=== PATIENT | female | born 1995 | race Caucasian/White ===

== ENCOUNTER 2020-01-27 01:18 | Emergency (ER) | payer BC, SELFPAY ==
[2020-01-27 01:25] VITALS: BP 148/106; PULSE 89; RESP 20; TEMP 36.8; O2SAT 100
--- NOTE | 2020-01-27 02:25 | ED.GIBLEED ---
HPI - GI Bleed General Chief complaint: Unspecified Stated complaint: blood in stool Time Seen by Provider: 01/27/20 01:43 Source: patient Mode of arrival: ambulatory Limitations: no limitations History of Present Illness HPI Narrative: Patient is a 24-year-old female who presents to the emergency department with complaint of rectal bleeding. Patient states she had onset of symptoms a few hours ago after dinner. Patient noted some diarrhea with bright red blood in her stool. Patient reports the diarrhea subsided and when she passed gas while sitting on the toilet she felt blood come out noticed blood in the toilet again. Patient denies any nausea, vomiting, or abdominal pain. She denies any fever. Patient denies any prior episodes except for once while straining for a bowel movement when she was and having constipation issues. complaint: blood streaked stool and gross hematochezia Onset (ago): hour(s) Pain Consistency: intermittent Relieving factors: none Exacerbating factors: none and bowel movement Associated symptoms: denies other symptoms Treatments Prior to Arrival: none Related Data Allergies Allergy/AdvReac Type Severity Reaction Status Date / Time No Known Allergies Allergy Verified 01/27/20 01:32 Review of Systems Review of Systems: All systems reviewed & are unremarkable except as noted in HPI and below Gastrointestinal: Gastrointestinal: Denies abdominal pain, Reports hematochezia, Reports diarrhea, Denies nausea and Denies vomiting PMFSH Past Medical History Medical History (Updated 01/27/20 @ 03:31 by Neyda Ruelas MD) No significant past medical history Surgical History Surgical History (Updated 01/27/20 @ 02:26 by Neyda Ruelas MD) History of tonsillectomy Social History Social History (Updated 01/27/20 @ 02:27 by Neyda Ruelas MD) Smoking status: Never smoker Exam Const: General: cooperative, no acute distress and alert Nutritional Appearance: overweight Orientation/consciousness: patient oriented x3 Limitations: no limitations HENMT: Mouth: Yes lip normal and Yes moist mucous membranes Resp: Effort & Inspection: normal respiratory effort Auscultation: clear to auscultation bilaterally Cardio: Rate: regular rate Rhythm: regular rhythm GI: GI Palp: Yes Soft to palpation and No Tenderness to palpation present (GI) Auscultation: normal bowel sounds Rectal Exam: visual inspection normal, normal sphincter tone and other Other: No stool in rectal vault. Faint pink-tinged mucus consistent with recent bleeding Skin: General skin exam: normal color Neuro: General: patient oriented x3 Cognition (Neuro): normal cognition Speech: normal speech Extrem: General: normal to inspection, full ROM and no clubbing, cyanosis or edema Psych: Mental Status: mental status grossly normal Affect: normal affect Attitude: cooperative Course Course Emergency Course: Patient with normal vital signs and normal hemoglobin. No gross bleeding noted on rectal exam. Patient is stable for outpatient evaluation by her primary care physician, Dr. Figueroa. Advised patient to call office on Wednesday to schedule follow-up care. Vital Signs Vital signs: Vital Signs Temperature 98.3 F 01/27/20 01:25 Pulse Rate 89 01/27/20 01:25 Respiratory Rate 20 01/27/20 01:25 Blood Pressure 148/106 H 01/27/20 01:25 Pulse Oximetry 100 01/27/20 01:25 Temperature 98.3 F 01/27/20 01:25 Pulse Rate 89 01/27/20 01:25 Respiratory Rate 20 01/27/20 01:25 Blood Pressure 148/106 H 01/27/20 01:25 Pulse Oximetry 100 01/27/20 01:25 MDM - GI Bleed Lab Data Attestation: I reviewed the patient's lab results. Result diagrams: 01/27/20 02:39 01/27/20 02:39 Labs: Lab Results 01/27/20 01/27/20 Range/Units 02:39 02:39 WBC 7.7 (4.5-10.0) K/mm3 RBC 4.59 (4.2-5.4) M/mm3 Hgb 12.9 (12.0-15.0) g/dL Hct 39.7 (37.0-47.0) %
[2020-01-27 02:44] LABS: Basophils Absolute Auto 0.1 K/mm3 (0.0-0.1); Basophils Percent Auto 0.7 % (0.2-1.2); Eosinophils Absolute Auto 0.2 K/mm3 (0-0.3); Eosinophils Percent Auto 2.6 % (0-4.4); Hematocrit 39.7 % (37.0-47.0); Hemoglobin 12.9 g/dL (12.0-15.0); Immature Granulocyte Absolute 0.02 K/mm3 (0.00-0.031); Immature Granulocyte Percent A 0.3 % (0-0.5); Lymphocytes Absolute Auto 2.69 K/mm3 (0.9-3.2); Mean Corpuscular HGB Conc 32.5 g/dl (32-36); Mean Corpuscular Hemoglobin 28.1 pg (26-34); Mean Corpuscular Volume 86.5 fl (80-100); Mean Platelet Volume 10.3 fl (7.4-10.4); Monocytes Absolute Auto 0.6 K/mm3 (0.1-0.6); Monocytes Percent Auto 8.1 % (2.6-8.5); Neutrophils Absolute Auto 4.1 K/mm3 (1.3-6.7); Neutrophils Percent Auto 53.3 % (45.5-73.1); Platelet Count Result 280 k/mm3 (150-375); Red Blood Count 4.59 M/mm3 (4.2-5.4); Red Cell Distribution Width 12.4 % (11.5-14.5); White Blood Count 7.7 K/mm3 (4.5-10.0)
[2020-01-27 02:58] LABS: Alanine Aminotransferase 20 U/L (4-35); Albumin Level 4.3 g/dL (3.5-5.1); Alkaline Phosphatase 63 U/L (38-126); Aspartate Amino Transferase 22 U/L (14-36); Bilirubin,Total 0.2 mg/dL (0.2-1.3); Blood Urea Nitrogen 13 mg/dL (7-17); Calcium 9.5 mg/dL (8.4-10.2); Carbon Dioxide 31 mmol/L (22-30); Chloride 102 mmol/L (98-107); Estimated CRCL calculation 97 ml/min; Estimated Glomerular Filt Rate > 60; Glucose 90 mg/dL (65-105); Sodium 140 mmol/L (137-145)
[2020-01-27 03:39] VITALS: BP 142/99; PULSE 74; RESP 16; O2SAT 99
== END 2020-01-27 03:40 | disposition home or self-care (01) ==
PROVIDERS: Emergency Provider Emergency Medicine; PCP Internal Medicine
DX: K62.5 Hemorrhage of anus and rectum (principal)
CPT/HCPCS: 36415; 80053; 85025; 99283

== ENCOUNTER 2022-05-08 14:50 | Observation (INO) | payer BC, SELFPAY ==
--- NOTE | ~2022-05-08 | US_ITS ---
EXAMINATION: US OB transvaginal DATE: 05/08/2022 16:25 INDICATION: Pelvic and low back pain. Assess cervical length. TECHNIQUE: Real-time ultrasound of the pelvis was performed. The interpreting radiologist was not pre sent for the study. COMPARISON: None. FINDINGS: There is a single living fetus in vertex presentation. The placenta is anterior and low-lying with c audal margin 9 mm from the edge of the internal cervical os. Cervical length measures 6.2 cm which is normal with no funneling. heart rate is 142 beats per minute (bpm). The amniotic volume is sub jectively normal. IMPRESSION: 1. Single living fetus in vertex presentation with heart rate of 142 bpm. 2. Low-lying anterior placenta with caudal margin 9 mm from the edge of the internal cervical os. 3. Normal cervical length of 6.2 cm. Reviewed, dictated and finalized at location A. IMPRESSION: 1. Single living fetus in vertex presentation with heart rate of 142 bpm. 2. Low-lying anterior placenta with caudal margin 9 mm from the edge of the int ernal cervical os. 3. Normal cervical length of 6.2 cm.
--- NOTE | ~2022-05-08 | US_ITS ---
EXAMINATION: US OB limited DATE: 05/08/2022 16:25 INDICATION: Pelvic and low back pain. Assess cervical length. TECHNIQUE: Real-time ultrasound of the pelvis was performed. The interpreting radiologist was not pre sent for the study. COMPARISON: None. FINDINGS: There is a single living fetus in vertex presentation. The placenta is anterior and low-lying with ca udal margin 9 mm from the edge of the internal cervical os. Cervical length measures 6.2 cm which is normal with no funneling. heart rate is 142 beats per minute (bpm). The amniotic volume is subj ectively normal. IMPRESSION: 1. Single living fetus in vertex presentation with heart rate of 142 bpm. 2. Low-lying anterior placenta with caudal margin 9 mm from the edge of the internal cervical os. 3. Normal cervical length of 6.2 cm. Reviewed, dictated and finalized at location A. Reviewed, dictated and finalized at location A. IMPRESSION: 1. Single living fetus in vertex presentation with heart rate of 142 bpm. 2. Low-lying anterior placenta with caudal margin 9 mm from the edge of the int ernal cervical os. 3. Normal cervical length of 6.2 cm.
[2022-05-08 15:19] VITALS: BP 132/71; PULSE 88
[2022-05-08 15:20] VITALS: TEMP 36.6
[2022-05-08 15:31] VITALS: BP 116/69; PULSE 87
--- NOTE | 2022-05-08 15:42 | PC.NURSE ---
Sybil Douglas [facility] notified of pt's arrival with c/o pain with urination and urinary frequency x's 2-3 wks. She has had worsening pain in lower abdomen and back that started yesterday, but worse since noon today. Pt did take Tylenol with little relief. FHT's 145 at 21 wks and no contractions noted. UA was sent. Order received for U/S for cervical length.
--- NOTE | 2022-05-08 15:56 | PC.NURSE ---
Off monitor and to U/S per wheelchair.
[2022-05-08 16:19] LABS: Appearance Urine Clear (Clear); Bilirubin Urine Negative (Negative); Blood Urine Negative (Negative); Color Urine Yellow (Yellow); Glucose Urine UA Negative (Negative); Ketones Urine Negative (Negative); Leukocyte Esterase Ur Negative LEU/UL (Negative); Nitrate Urine Negative (Negative); Protein Urine Negative (Negative); Specific Grav Ur 1.025 (1.001-1.035); Urobilinogen Urine 0.2 mg/dL (<2.0)
[2022-05-08 16:22] LABS: Add Urine Microscopic? NO
[2022-05-08 16:38] VITALS: BMI 36.7
--- NOTE | 2022-05-08 16:39 | OBADM ---
This patient, Jessica Greenwood, admitted to the OB room OB Post 115 for observation. Patient/family oriented to hospital policies and general routines including ID bracelet, bed and alarms, visiting hours, pain management, procedures, bathroom and other care routines, personal items, smoking policy, room service/diet, and visiting hours. Patient/Family are encouraged to report perceived risks to care and to ask questions if they do not understand what they are told or what they should do.
[2022-05-08 17:01] VITALS: BP 130/76; PULSE 79
[2022-05-08 17:31] VITALS: BP 134/73; PULSE 88
--- NOTE | 2022-05-13 06:59 | PM.OBTRLD ---
OB - Triage/Final Diagnosis Visit Information Date of evaluation: 05/08/22 Reason for evaluation: threatened labor Comments/Additional reasons for admission: I have assessed the risk for this patient, Jessica Greenwood, and determined that she would benefit from observation care. Evaluation Laboratory results: Laboratory Tests 05/08/22 15:21 Urine Color Yellow Urine Appearance Clear Urine pH 6.0 Ur Specific [place] 1.025 Urine Protein Negative Urine Glucose (UA) Negative Urine Ketones Negative Ur Blood (Man) Negative Urine Nitrate Negative Urine Bilirubin Negative Urine Urobilinogen 0.2 Leukocyte Esterase Rfl Negative
== END 2022-05-08 17:30 | disposition home or self-care (01) ==
PROVIDERS: Advanced Practice Midwife; Admitting Provider Obstetrics & Gynecology; Visit Provider Obstetrics & Gynecology
DX: O47.03 False labor before 37 completed weeks of gestation, third trimester (principal); Z3A.31 31 weeks gestation of pregnancy
CPT/HCPCS: 76815; 76817; 81003; G0378; G0379

== ENCOUNTER 2022-07-24 12:11 | Outpatient (CLI) | payer BC, SELFPAY ==
[2022-07-24 12:30] VITALS: BP 137/88; PULSE 105
[2022-07-24 12:45] VITALS: BP 128/73; PULSE 105
[2022-07-24 13:04] VITALS: BP 128/73; PULSE 115; BMI 41.2
== END 2022-07-24 13:12 | disposition home or self-care (01) ==
LOC: ANHOBOP 12:16 → ANHOBPP 12:19
PROVIDERS: Visit Provider Obstetrics & Gynecology
DX: O42.90 Premature rupture of membranes, unspecified as to length of time between rupture and onset of labor, unspecified weeks of gestation (principal); Z3A.00 Weeks of gestation of pregnancy not specified
CPT/HCPCS: 59025; 84112; 99199

== ENCOUNTER 2022-08-26 12:40 | Outpatient (CLI) | payer BC, SELFPAY ==
[2022-08-26 13:06] VITALS: BP 136/86; PULSE 97
[2022-08-26 13:15] LABS: Appearance Urine Clear (Clear); Basophils Percent Auto 0.3 % (0.2-1.2); Bilirubin Urine Negative (Negative); Blood Urine Trace-intact (Negative); Color Urine Yellow (Yellow); Eosinophils Absolute Auto 0.1 K/mm3 (0-0.3); Eosinophils Percent Auto 0.6 % (0-4.4); Glucose Urine UA Negative (Negative); Hematocrit 37.1 % (37.0-47.0); Hemoglobin 12.2 g/dL (12.0-15.0); Immature Granulocyte Absolute 0.04 K/mm3 (0.00-0.031); Immature Granulocyte Percent A 0.5 % (0-0.5); Ketones Urine Negative (Negative); Leukocyte Esterase Ur 1+ LEU/UL (NEGATIVE); Lymphocytes Absolute Auto 1.44 K/mm3 (0.9-3.2); Mean Corpuscular HGB Conc 32.9 g/dl (32-36); Mean Corpuscular Hemoglobin 27.9 pg (26-34); Mean Corpuscular Volume 84.9 fl (80-100); Mean Platelet Volume 9.9 fl (7.4-10.4); Monocytes Absolute Auto 0.5 K/mm3 (0.1-0.6); Monocytes Percent Auto 6.4 % (2.6-8.5); Neutrophils Absolute Auto 5.9 K/mm3 (1.3-6.7); Neutrophils Percent Auto 74.2 % (45.5-73.1); Nitrate Urine Negative (Negative); Platelet Count Result 212 k/mm3 (150-375); Protein Urine Negative (Negative); Red Blood Count 4.37 M/mm3 (4.2-5.4); Red Cell Distribution Width 13.2 % (11.5-14.5); Specific Grav Ur 1.025 (1.001-1.035); Urobilinogen Urine 0.2 mg/dL (<2.0)
[2022-08-26 13:16] VITALS: BP 133/87; PULSE 96
[2022-08-26 13:21] LABS: Creatinine Urine 74.6 mg/dL; Total Protein Urine Random 21 mg/dL; Ur Ttl Prot Creatinine Ratio 0.28 mg/mg (0-0.20)
[2022-08-26 13:26] LABS: Alanine Aminotransferase 15 U/L (6-35); Albumin Level 3.6 g/dL (3.5-5.1); Alkaline Phosphatase 136 U/L (38-126); Anion Gap 8 mmol/L (8-16); Aspartate Amino Transferase 18 U/L (14-36); Bilirubin,Total 0.3 mg/dL (0.2-1.3); Blood Urea Nitrogen 6 mg/dL (7-17); Calcium 9.4 mg/dL (8.4-10.2); Carbon Dioxide 22 mmol/L (22-30); Chloride 106 mmol/L (98-107); Estimated Glomerular Filt Rate > 60; Glucose 108 mg/dL (65-110); Potassium 3.8 mmol/L (3.4-5.0); Sodium 136 mmol/L (137-145); Uric Acid 3.1 mg/dL (2.5-7.5)
[2022-08-26 13:28] LABS: Bacteria Urine Trace /hpf; Mucus Urine Rare /lpf; Squamous Epithelial Cell Urine Occasional /hpf (Few)
[2022-08-26 13:31] VITALS: BP 125/81; PULSE 89
[2022-08-26 13:37] LABS: Add Urine Microscopic? YES
== END 2022-08-26 13:40 | disposition home or self-care (01) ==
LOC: ANHOBOP 12:43 → ANHOBPP 12:44
PROVIDERS: Advanced Practice Midwife; Visit Provider Obstetrics & Gynecology
DX: O13.9 Gestational [pregnancy-induced] hypertension without significant proteinuria, unspecified trimester (principal); Z3A.00 Weeks of gestation of pregnancy not specified
CPT/HCPCS: 36415; 59025; 80053; 81001; 82570; 84156; 84550; 85025; 87086; 99199

== ENCOUNTER 2022-09-05 11:48 | Outpatient (CLI) | payer BC, SELFPAY ==
[2022-09-05 11:55] VITALS: BMI 42.7
[2022-09-05 12:19] LABS: Estimated CRCL calculation 178 ml/min; Estimated Glomerular Filt Rate > 60
[2022-09-05 12:25] LABS: Collection Time Urine 24 HOURS; Total Volume 24 Hour Urine 2450 ml
[2022-09-05 12:34] LABS: Creatinine Urine 59.3 mg/dL; Patient Weight 249 Lbs; Total Protein Urine 24 Hr 196 mg/24hr (28-141); Total Protein Urine Random 8 mg/dL
[2022-09-05 12:45] LABS: Creatinine Clearance Urine 163.1 ml/min (75-125); Serum Creat 0.5
== END 2022-09-05 11:49 | disposition home or self-care (01) ==
LOC: ANHOBOP 11:50
PROVIDERS: Visit Provider Obstetrics & Gynecology
DX: Z34.90 Encounter for supervision of normal pregnancy, unspecified, unspecified trimester (principal); Z3A.00 Weeks of gestation of pregnancy not specified
CPT/HCPCS: 36415; 81050; 82565; 82575; 84156

== ENCOUNTER 2022-09-11 04:57 | Inpatient (IN) | payer BC, SELFPAY ==
[2022-09-11] VITALS (171 sets, daily range): BP systolic 79–174; BP diastolic 45–117; PULSE 71–141; RESP 16; TEMP 36.2–36.9; O2SAT 95–100; BMI 43.1
--- NOTE | 2022-09-11 05:25 | LDADM ---
This patient, Jessica Greenwood, was admitted to Labor/Delivery/Recovery 107 on 09/11/22 at 04:57. Plans for labor, pain management and were discussed with patient. Patient/family oriented to hospital policies and general routines including ID bracelet, bed and alarms, visiting hours, pain management, procedures, bathroom and other care routines, personal items, smoking policy, room service/diet and guest tray routines, security routines, and visiting hours. Patient/Family are encouraged to report perceived risks to care and to ask questions if they do not understand what they are told or what they should do. See OBIX for further documentation.
[2022-09-11 05:34] LABS: Basophils Percent Auto 0.2 % (0.2-1.2); Eosinophils Absolute Auto 0.1 K/mm3 (0-0.3); Eosinophils Percent Auto 1.1 % (0-4.4); Hemoglobin 12.2 g/dL (12.0-15.0); Immature Granulocyte Absolute 0.04 K/mm3 (0.00-0.031); Immature Granulocyte Percent A 0.4 % (0-0.5); Lymphocytes Absolute Auto 2.07 K/mm3 (0.9-3.2); Lymphocytes Percent Auto 22.8 % (18.3-44.2); Mean Corpuscular Volume 84.9 fl (80-100); Mean Platelet Volume 10.1 fl (7.4-10.4); Monocytes Absolute Auto 0.8 K/mm3 (0.1-0.6); Monocytes Percent Auto 8.7 % (2.6-8.5); Neutrophils Absolute Auto 6.1 K/mm3 (1.3-6.7); Neutrophils Percent Auto 66.8 % (45.5-73.1); Platelet Count Result 225 k/mm3 (150-375); Red Blood Count 4.36 M/mm3 (4.2-5.4); Red Cell Distribution Width 13.3 % (11.5-14.5); White Blood Count 9.1 K/mm3 (4.5-10.0)
[2022-09-11] MEDS: LACTATED RINGERS 1,000 ML 125 ML IV CONT ×3 (05:41→17:45)
[2022-09-11] MEDS: OXYTOCIN 30 UNITS/NS 500 ML 30 UNITS/500 ML BAG IV CONT (05:41)
--- NOTE | 2022-09-11 07:30 | WPDOBADMIT ---
Obstetrics - Admit Note Admission Note: record reviewed. No pertinent additions to the history and/or any subsequent changes in the physical findings that are not consistent with the expected course of the were found. Elective IOL, SVE 2-3/-2 AROM moderate amount of clear odorless fluid, anticipate vaginal delivery Additions to the history and/or subsequent changes in the physical findings follow. None.
--- NOTE | 2022-09-11 08:28 | WPDANESEPP ---
Anes - Eval Pre Procedure Procedure: labor pain management Date/Time: 09/11/22 08:28 Surgeon: Stacie Preop Diagnosis: pain during labor Pre Op Diagnosis: IOL Patient Data Age: 26 Gender: F Height: 1.63 m Weight: 114 kg Last Vital Signs Temp 97.2 F L 09/11/22 07:30 Pulse 94 09/11/22 08:15 Resp 16 09/11/22 05:45 BP 129/97 H 09/11/22 08:15 O2 Del Method Room Air 09/11/22 05:23 Allergies Allergy/AdvReac Type Severity Reaction Status Date / Time No Known Allergies Allergy Verified 05/08/22 16:47 Home Medications Medication Instructions Recorded Confirmed Type acetaminophen 500 mg tablet 1,000 mg PO Q6H PRN Pain 05/08/22 09/11/22 History (Tylenol Extra Strength) Laboratory Tests 09/11/22 09/11/22 09/11/22 05:29 05:29 05:29 WBC 9.1 K/mm3 K/mm3 (4.5-10.0) RBC 4.36 M/mm3 M/mm3 (4.2-5.4) Hgb 12.2 g/dL g/dL (12.0-15.0) Hct 37.0 % % (37.0-47.0) MCV 84.9 fl fl (80-100) MCH 28.0 pg pg (26-34) MCHC 33.0 g/dl g/dl (32-36) RDW 13.3 % % (11.5-14.5) Plt Count 225 k/mm3 k/mm3 (150-375) MPV 10.1 fl fl (7.4-10.4) Immature Gran % (Auto) 0.4 % % (0-0.5) Neut % (Auto) 66.8 % % (45.5-73.1) Lymph % (Auto) 22.8 % % (18.3-44.2) [place] % (Auto) 8.7 % H % (2.6-8.5) Eos % (Auto) 1.1 % % (0-4.4) Baso % (Auto) 0.2 % % (0.2-1.2) Lymph # (Auto) 2.07 K/mm3 K/mm3 (0.9-3.2) [place] # (Auto) 0.8 K/mm3 H K/mm3 (0.1-0.6) Eos # (Auto) 0.1 K/mm3 K/mm3 (0-0.3) Baso # (Auto) 0.0 K/mm3 K/mm3 (0.0-0.1) Abs Immat Gran (auto) 0.04 K/mm3 H K/mm3 (0.00-0.031) Absolute Neuts (auto) 6.1 K/mm3 K/mm3 (1.3-6.7) Absolute Nucleated RBC 0.0 K/mm3 K/mm3 (0.0-0.012) Nucleated RBC % 0.0 % % (0.0-0.2) RPR Pending Blood Type A Positive Antibody Screen Negative Patient hx anesthesia problems: none Family hx anesthesia problems: none Prior surgeries: tonsillectomy Results Review: All pre-operative results and documents have been reviewed as part of the pre-operative evaluation. [facility] Past Medical History Medical History (Updated 09/11/22 @ 08:27 by Marcia Jane CRNA) Morbid obesity with BMI of 40.0-44.9, adult No significant past medical history Pain during labor Surgical History Surgical History (Updated 01/27/20 @ 02:26 by Neyda Ruelas MD) History of tonsillectomy Family History Family History (Updated 08/20/22 @ 12:50 by Herlinda Ruano RN) Mother Anxiety Grandparent Lymphoma Social History Social History (Updated 01/27/20 @ 02:27 by Neyda Ruelas MD) Smoking status: Never smoker Substance use: never Lack of Transportation: No Lack of Food: Never True Current Housing: I Have Housing Concerned About Future Housing: No Difficulty Paying Gas/Electric Bills: No Difficulty Paying for Meds: No Currently Unemployed: No Education: High School Diploma/GED Difficulty w/ Childcare or Family Care: No Spiritual care concerns: No Exam Day of Procedure 09/11/22 08:28
[2022-09-11 12:04] LABS: Rapid Plasma Reagin Non-Reactive (NonReactive)
--- NOTE | 2022-09-11 15:43 | PM.OBPRVD ---
OB - Delivery Note Procedure Delivery date: 09/11/22 Procedure: vaginal delivery Induction method: AROM and Per Pitocin Protocol Delivery monitor: External FHT, External Uterine and Internal Uterine Laceration Description: None Specimen: No Quantitative Blood Loss (ml): 85 Anesthesia type: Epidural Disposition: Floor [place] Baby Date of : 09/11/22 Time of : 15:33 Weeks of gestation at delivery: 39 gender: Female Weight (pounds): 7 Weight (ounces): 1 presentation: vertex position: Right Occiput Anterior Placenta delivery description: Spontaneous Cord Vessel Description: 3 Vessels, Nuchal Cord (x2, loose), Clamped/Cut and Delayed Cord Clamping score one minute: 7 score five minutes: 8 Narrative: mother and baby skin to skin in stable condition
[2022-09-12] MEDS: IBUPROFEN 600 MG TABLET PO ×2 (00:17→10:33)
[2022-09-12 01:30] VITALS: BP 136/88; PULSE 101; RESP 16; TEMP 36.9; O2SAT 97
[2022-09-12] MEDS: ACETAMINOPHEN 325 MG TABLET 650 MG PO (04:45)
--- NOTE | 2022-09-12 05:11 | PC.NURSE ---
Addendum entered by Heidi Leos RN 09/12/22 05:12: Pt. arrived on unit at 1825. Original Note: Patient transferred to post room #287 via ( W/C ). Support person present. Oriented to unit, room, information board, rooming in, admission packet and security measures. Patient verbalizes understanding.
[2022-09-12 05:40] VITALS: BP 134/84; PULSE 96; RESP 18; TEMP 36.9; O2SAT 97
[2022-09-12 05:46] LABS: Hematocrit 31.8 % (37.0-47.0); Hemoglobin 10.4 g/dL (12.0-15.0)
[2022-09-12 07:45] VITALS: BP 111/67; PULSE 92; RESP 18; TEMP 37; O2SAT 98
[2022-09-12 08:00] VITALS: PULSE 92; RESP 18; O2SAT 98
[2022-09-12] MEDS: DOCUSATE SODIUM 100 MG CAPSULE PO (10:33)
[2022-09-12] MEDS: MULTIVIT/MIN/PREN/FOL AC/IRON TABLET 1 TAB PO (10:33)
--- NOTE | 2022-09-12 10:39 | PM.OBPNVD ---
OB - PN: Subj Subjective Date/time seen: 09/12/22 10:39 vaginal delivery day 1 OB - PN: Obj Data Labs 09/12/22 05:31 Labs: Laboratory Results - last 24 hr 09/11/22 09/12/22 05:29 05:31 Hgb 10.4 L Hct 31.8 L RPR Non-reactive OB - PN A/P Plan day: 1 Plan: routine care Time Spent With Patient Time: Total time spent is greater than 50% in coordination of care (as documented) at patient's floor/unit and/or counseling patient: Review of Systems Review of Systems: All systems reviewed & are unremarkable except as noted in HPI and below Exam Const: General: cooperative, healthy appearing and comfortable
--- NOTE | 2022-09-12 10:45 | PM.OBDSVD ---
DS: Admitting Diagnosis Discharge Date 09/12/22 Admitting Diagnosis IOL OB - DS: Summary OB Procedures : None OB Procedures Intrapartum: Spontaneous Vag Delivery OB Procedures: : None Time Spent with Patient Time attestation: Total time spent providing and/or coordinating discharge services: DS: Data Data Completed and Pending Labs on day of discharge: Labs from last 24 hours 09/12/22 09/11/22 05:31 05:29 Hgb 10.4 L Hct 31.8 L RPR Non-reactive Discharge Plan Discharge Attending physician on discharge: Tori Quinones Discharging Clinician: Heidi Douglas Patient Disposition: Home, Self-Care Activity: pelvic rest Diet: regular Patient Instructions: Antibiotic Form Stand Alone Forms: General Discharge Information Follow-up/Referrals: Heidi Douglas CNM [Certified Nurse [employer]otive [employer]] - 1 Week Discharge Medications: New ibuprofen 600 mg Tablet 600 mg PO Q6H PRN (Reason: Cramping) Qty: 30 0RF Continued acetaminophen [Tylenol Extra Strength] 500 mg Tablet 1,000 mg PO Q6H PRN (Reason: Pain) Date of admission: 09/11/22 04:57 Primary Care Provider: PHYSICIAN,HUMAN SERVICES MANAGER Admitting Provider: Tori Quinones Attending physician on admission: Tori Quinones Condition: Stable
--- NOTE | 2022-09-12 11:01 | WPDANLDPN2 ---
Anes-Prog Note L&D Date/Time: 09/12/22 11:01 Comfortable throughout: labor and delivery Neuraxial method: epidural Epidural/Spinal procedure site: clean & non-tender Neuro status: Neuro function grossly intact. Cardiovascular status: normal Respiratory status: normal Airway patency: baseline Mental status: baseline Post-Op hydration status: normal Vital Signs: Last Vital Signs Temp 37.0 C 09/12/22 07:45 Pulse 92 09/12/22 07:45 Resp 18 09/12/22 07:45 BP 111/67 09/12/22 07:45 Pulse Ox 98 09/12/22 07:45 O2 Del Method Room Air 09/11/22 20:30 Pain score (VAS): 10/13 I/O: Intake & Output 09/11/22 09/12/22 09/12/22 23:59 07:59 15:59 Output Total 600 Balance -600 Post-procedural complaints: none Patient feedback: Patient satisfied with anesthetic care.
[2022-09-12 13:30] VITALS: BP 113/70; PULSE 94; RESP 18; TEMP 36.9; O2SAT 98
== END 2022-09-12 17:12 | disposition home or self-care (01) | DRG 807 ==
LOC: ANHLDR 05:05 → ANHOB2 18:39
PROVIDERS: Advanced Practice Midwife; Admitting Provider Obstetrics & Gynecology; Visit Provider Obstetrics & Gynecology
DX: O69.81X0 Labor and delivery complicated by cord around neck, without compression, not applicable or unspecified (principal); Z37.0 Single live birth; Z3A.39 39 weeks gestation of pregnancy
CPT/HCPCS: 36415; 85014; 85018; 85025; 86592; 86850; 86900; 86901; A9270; J2590; J2795; J7120

== ENCOUNTER 2024-01-28 10:00 | Emergency (ER) | payer BC, SELFPAY ==
--- NOTE | ~2024-01-28 | CT_ITS ---
EXAMINATION: CT abdomen pelvis w con DATE: 01/28/2024 10:47 INDICATION: Lower abdominal pain. Diarrhea. TECHNIQUE: Computed tomography (CT) of the abdomen and pelvis was performed with 100 cc Omnipaque 350 intravenous contrast. The dose-length product was 386.61 mGy-cm. Automated exposure control and iter ative reconstruction technique were employed. COMPARISON: CT dated 01/31/2020 sixth. FINDINGS: No significant pleural or pericardial effusion. Heart size normal. Fatty infiltration of th e liver. The spleen, pancreas, adrenal glands and kidneys are unremarkable. There is free fluid in th e pelvis. Nonobstructive bowel gas pattern. Small amount of free fluid in the pelvis. No significant vascular abnormality. Gallbladder is present. No lymphadenopathy. No free air. IMPRESSION: 1. No acute abdominal abnormality. Reviewed, dictated and finalized at location B.
[2024-01-28 10:07] VITALS: BP 138/83; PULSE 90; RESP 16; TEMP 36.6; O2SAT 100
[2024-01-28] MEDS: FAMOTIDINE 20 MG/2 ML VIAL IV PUSH (10:35)
[2024-01-28] MEDS: SODIUM CHLORIDE 0.9% IV 1,000 ML 999 ML IV CONT (10:35)
[2024-01-28] MEDS: DICYCLOMINE HCL 10 MG CAPSULE 20 MG PO (10:35)
[2024-01-28 10:39] LABS: Basophils Percent Auto 0.4 % (0.2-1.2); Eosinophils Absolute Auto 0.4 K/mm3 (0-0.3); Eosinophils Percent Auto 5.2 % (0-4.4); Hematocrit 43.9 % (37.0-47.0); Hemoglobin 14.6 g/dL (12.0-15.0); Immature Granulocyte Absolute 0.02 K/mm3 (0.00-0.031); Immature Granulocyte Percent A 0.3 % (0-0.5); Lymphocytes Percent Auto 22.4 % (18.3-44.2); Mean Corpuscular HGB Conc 33.3 g/dl (32-36); Mean Corpuscular Hemoglobin 28.7 pg (26-34); Mean Corpuscular Volume 86.2 fl (80-100); Mean Platelet Volume 10.8 fl (7.4-10.4); Monocytes Absolute Auto 0.5 K/mm3 (0.1-0.6); Monocytes Percent Auto 7.2 % (2.6-8.5); Neutrophils Absolute Auto 4.3 K/mm3 (1.3-6.7); Neutrophils Percent Auto 64.5 % (45.5-73.1); Platelet Count Result 242 k/mm3 (150-375); Red Blood Count 5.09 M/mm3 (4.2-5.4); Red Cell Distribution Width 12.2 % (11.5-14.5); White Blood Count 6.7 K/mm3 (4.5-10.0)
[2024-01-28 10:45] LABS: Estimated CRCL calculation 92 ml/min; Estimated Glomerular Filt Rate > 60
[2024-01-28 10:49] LABS: Magnesium 1.8 mg/dL (1.6-2.3)
--- NOTE | 2024-01-28 10:50 | ED.ABDPAIN ---
HPI - Abdominal Pain General Chief Complaint: Abdominal Pain Stated Complaint: N/V/D ABD PAIN Time Seen by Provider: 01/28/24 10:08 Source: patient Mode of arrival: ambulatory Limitations: no limitations History of Present Illness HPI narrative: Patient is a 28-year-old female who presents the ED with report of diarrhea and abdominal pain. Patient reports for the last 1.5 weeks, she has been having persistent diarrhea. States it is now watery and yellow in color. Denies rectal bleeding or melena. Reports having constant pain diffusely throughout her lower abdomen with waves of more significant pain/cramping. Also complains of sulfur-like belching, nausea. Denies fevers, vomiting. Denies sick contacts, bad food exposure, family members with similar sx's. Patient has only taken Tylenol for her symptoms. Related Data Home Medications Medication Instructions Recorded Confirmed acetaminophen 500 mg tablet 1,000 mg PO Q6H PRN Pain 05/08/22 09/11/22 (Tylenol Extra Strength) Allergies Allergy/AdvReac Type Severity Reaction Status Date / Time No Known Allergies Allergy Verified 05/08/22 16:47 Review of Systems Review of Systems: CONSTITUTIONAL: Denies fever, chills, or sweats. GASTROINTESTINAL: See HPI. GENITOURINARY: Denies dysuria or hematuria. MUSCULOSKELETAL: Denies back pain, extremity pain, myalgia. All systems reviewed & are unremarkable except as noted in HPI and below PMFSH Past Medical History Medical History Morbid obesity with BMI of 40.0-44.9, adult No significant past medical history Pain during labor Surgical History Surgical History History of tonsillectomy Family History Family History Mother Anxiety Grandparent Lymphoma Social History Social History Smoking status: Never smoker Substance use: never Lack of Transportation: No Lack of Food: Never True Current Housing: I Have Housing Concerned About Future Housing: No Difficulty Paying Gas/Electric Bills: No Difficulty Paying for Meds: No Currently Unemployed: No Education: High School Diploma/GED Difficulty w/ Childcare or Family Care: No Spiritual care concerns: No Exam Narrative: GENERAL: Well appearing, well-nourished, non-toxic, in no acute distress. HEAD: Normocephalic, atraumatic. RESPIRATORY: Airway patent, respirations nonlabored. Clear to auscultation bilaterally, no rales, rhonchi, wheezing. CARDIOVASCULAR: Regular rate and rhythm without murmurs, rubs, or gallops. ABDOMINAL: Soft, diffuse tenderness throughout lower abdomen, no rebound, nondistended. Normoactive BS. MUSCULOSKELETAL: Moves all extremities. No gross deformities. SKIN: Warm, dry, normal color. NEURO: A&O X3. Speech clear. Cranial nerves II-XII grossly intact. Steady gait. No ataxic movements. PSYCHIATRIC: Anxious, tearful. Normal interaction. Course Vital Signs Vital signs: Vital Signs Temperature 97.8 F 01/28/24 10:07 Pulse Rate 90 01/28/24 10:07 Respiratory Rate 16 01/28/24 10:07 Blood Pressure 138/83 01/28/24 10:07 Pulse Oximetry 100 01/28/24 10:07 Temperature 97.8 F 01/28/24 10:07 Pulse Rate 90 01/28/24 10:07 Respiratory Rate 16 01/28/24 10:07 Blood Pressure 138/83 01/28/24 10:07 Pulse Oximetry 100 01/28/24 10:07 MDM - Abdominal Pain MDM Narrative Medical decision making narrative: Patient presented to ED with 1.5 week history of lower abdominal pain, diarrhea. Vital signs are stable upon arrival. No evidence of hemodynamic instability. Patient afebrile. Cbc without leukocytosis or anemia. CMP unremarkable. Stable electrolytes and kidney function. Magnesium within normal limits. Normal LFTs and lipase. Urinaly
[2024-01-28 10:52] LABS: Alanine Aminotransferase 14 U/L (6-35); Albumin Level 4.7 g/dL (3.5-5.1); Alkaline Phosphatase 51 U/L (38-126); Anion Gap 9 mmol/L (4-12); Aspartate Amino Transferase 19 U/L (14-36); Bilirubin,Total 0.9 mg/dL (0.2-1.3); Blood Urea Nitrogen 16 mg/dL (7-17); Calcium 9.7 mg/dL (8.4-10.2); Carbon Dioxide 23 mmol/L (22-30); Chloride 109 mmol/L (98-107); Estimated CRCL calculation 104 ml/min; Estimated Glomerular Filt Rate > 60; Glucose 106 mg/dL (65-110); Lipase 112 U/L (23-300); Potassium 3.7 mmol/L (3.4-5.0); Sodium 141 mmol/L (137-145)
[2024-01-28 11:10] LABS: Appearance Urine Cloudy (Clear); Bacteria Urine 4+ /hpf; Bilirubin Urine Negative (Negative); Blood Urine Negative (Negative); Color Urine Yellow (Yellow); Glucose Urine UA Negative (Negative); Hyaline Casts Urine Present /lpf; Ketones Urine 1+ mg/dL (Negative); Leukocyte Esterase Ur 2+ LEU/UL (Negative); Mucus Urine Present /lpf; Need Manual Microscopic Reviewed; Nitrate Urine Negative (Negative); Protein Urine Trace mg/dL (Negative); Squamous Epithelial Cell Urine Many /hpf (Few); Urobilinogen Urine 0.2 mg/dL (<2.0); WBC Urine 21-50 /hpf (0-3); pH Urine 5.5 (5.0-9.0)
[2024-01-28 11:12] LABS: Specific Grav Ur 1.035 (1.001-1.035)
[2024-01-28 11:13] LABS: Add Urine Microscopic? YES
[2024-01-28] MEDS: KETOROLAC 30 MG/ML VIAL (*BKC) IV PUSH (13:10)
[2024-01-28 13:12] VITALS: BP 132/80; PULSE 88; RESP 18; O2SAT 100
== END 2024-01-28 13:13 | disposition home or self-care (01) ==
PROVIDERS: Emergency Provider Physician Assistant; PCP Internal Medicine
DX: R10.30 Lower abdominal pain, unspecified (principal); R19.7 Diarrhea, unspecified; N30.01 Acute cystitis with hematuria
CPT/HCPCS: 36415; 74177; 80053; 81001; 81025; 83690; 83735; 85025; 87086; 87088; 96361; 96374; 96375; 99284; A9270; J1885; J7030; Q9967

== ENCOUNTER 2024-06-12 19:58 | Emergency (ER) | payer SELFPAY ==
[2024-06-12 20:41] VITALS: BP 132/86; PULSE 117; RESP 15; TEMP 36.6; O2SAT 100
--- NOTE | 2024-06-12 21:23 | PC.NURSE ---
PT DECIDED TO LEAVE ER. I CAN'T WAIT ANY LONGER'
== END 2024-06-12 21:23 | disposition left against medical advice (07) ==
PROVIDERS: PCP Internal Medicine
DX: R11.2 Nausea with vomiting, unspecified (principal)
CPT/HCPCS: 99199

== ENCOUNTER 2024-06-14 03:42 | Emergency (ER) | payer OTHER, SELFPAY ==
[2024-06-14] VITALS (9 sets, daily range): BP systolic 96–134; BP diastolic 65–82; PULSE 90–126; RESP 16–26; TEMP 36.4–36.5; O2SAT 98–100
--- NOTE | ~2024-06-14 | CT_ITS ---
CT of the Abdomen and Pelvis: Indication: Abdominal pain Technique: 2.5 mm axial scans were obtained through the abdomen and pelvis following intravenous adm inistration of 100 cc of Omnipaque 350. Dose reduction technique was used on this scan by utilizing a utomated exposure control and iterative reconstruction technique. The dose-length product (DLP) was 4 05.43 mGy-cm. COMPARISON: 01/28/2024 Findings: Scans through the lung bases are unremarkable. The liver, spleen, pancreas, gallbladder, adrenals and kidneys are within normal limits. No evidence of aortic aneurysm. No lymphadenopathy. No bowel obstruction or bowel wall thickening. There is no evidence to suggest acute appendicitis. Images through the pelvis were performed. Urinary bladder unremarkable. No pelvic mass seen. No ascit es. Impression: No significant abnormalities seen. Reviewed, dictated and finalized at [facility]. Impression: No significant abnormalities seen.
--- NOTE | 2024-06-14 05:07 | ED.ABDPAIN ---
HPI - Abdominal Pain General Chief Complaint: Abdominal Pain Stated Complaint: abdominal pain, N/V Time Seen by Provider: 06/14/24 04:48 History of Present Illness HPI narrative: 28-year-old otherwise healthy female presenting to the emergency department for abdominal pain. Patient states has been going on for 2 days time associated with profound nauseousness and vomiting. Worse with food and water. She states she has not been able to take anything today. Pain comes and goes in waves and described as a twisting stomach sensation. Nonlocalized. No associated back pain, chest pain, shortness a breath, fever, chills, urinary issues or pelvic issues. No vaginal bleeding, denies any chance of . Related Data Home Medications Medication Instructions Recorded Confirmed acetaminophen 500 mg tablet 1,000 mg PO Q6H PRN Pain 05/08/22 09/11/22 (Tylenol Extra Strength) Allergies Allergy/AdvReac Type Severity Reaction Status Date / Time No Known Allergies Allergy Verified 06/12/24 20:42 Review of Systems Review of Systems: As reviewed above in HPI [facility] Past Medical History Medical History Morbid obesity with BMI of 40.0-44.9, adult No significant past medical history Pain during labor Surgical History Surgical History History of tonsillectomy Family History Family History Mother Anxiety Grandparent Lymphoma Social History Social History Smoking status: Never smoker Substance use: never Lack of Transportation: No Lack of Food: Never True Current Housing: I Have Housing Concerned About Future Housing: No Difficulty Paying Gas/Electric Bills: No Difficulty Paying for Meds: No Currently Unemployed: No Education: High School Diploma/GED Difficulty w/ Childcare or Family Care: No Spiritual care concerns: No Exam Narrative: GENERAL: Very tearful in appearance, in pain but not in any distress HEAD: [Normocephalic, atraumatic.] EYES: [PERRLA and EOMI.] ENT: Nares clear, no rhinorrhea or epistaxis. Mucous membranes moist. NECK: Supple. CHEST: [Clear to auscultation. No respiratory distress.] HEART: [Regular rate and rhythm]. No murmur heard. [Normal peripheral pulses.] ABDOMEN: [Soft, nondistended], tender to palpation diffusely, pain with movement of the stretcher, [No rigidity or guarding] EXTREMITIES: Normal range of motion. [No edema.] SKIN: Warm, dry, no rash. NEURO: [No focal deficits]. Alert and oriented [x3.] PSYCH: [Normal mood and affect.] Course Vital Signs Vital signs: Vital Signs Temperature 36.5 C 06/14/24 03:44 Pulse Rate 126 H 06/14/24 03:44 Respiratory Rate 18 06/14/24 03:44 Blood Pressure 117/82 06/14/24 03:44 Pulse Oximetry 100 06/14/24 03:44 Oxygen Delivery Room Air 06/14/24 03:44 Temperature 36.5 C 06/14/24 03:44 Pulse Rate 126 H 06/14/24 03:44 Respiratory Rate 18 06/14/24 03:44 Blood Pressure 117/82 06/14/24 03:44 Pulse Oximetry 100 06/14/24 03:44 Oxygen Delivery Room Air 06/14/24 03:44 MDM - Abdominal Pain MDM Narrative Medical decision making narrative: 28-year-old female presenting for abdominal pain. Abdominal pain is associated nausea and vomiting but no fever, chills, chest pain, shortness a breath. Pain is worse with oral intake. She has reassuring vital signs aside for tachycardia with a pulse of 126. Abdominal examination shows a diffusely tender abdomen but soft and nondistended. No CVA tenderness. She is afebrile and saturating well on room air. Differential diagnosis is broad but includes appendicitis, cholelithiasis, cholecystitis, renal colic, diverticulitis, nonspecific colitis. Blood work was obtained including a
[2024-06-14] MEDS: LACTATED RINGERS 1,000 ML 999 ML IV CONT (05:16)
[2024-06-14] MEDS: HYDROmorphone HCL INJ (*CRX) 1 MG/ML SYR 0.5 MG IV PUSH (05:17)
[2024-06-14] MEDS: ONDANSETRON INJ 4 MG/2 ML VIAL IV PUSH (05:17)
[2024-06-14 05:26] LABS: Basophils Percent Auto 0.5 % (0.2-1.2); Eosinophils Percent Auto 0.2 % (0-4.4); Hematocrit 45.2 % (37.0-47.0); Hemoglobin 15.1 g/dL (12.0-15.0); Immature Granulocyte Absolute 0.01 K/mm3 (0.00-0.031); Immature Granulocyte Percent A 0.2 % (0-0.5); Lymphocytes Absolute Auto 0.91 K/mm3 (0.9-3.2); Lymphocytes Percent Auto 16.1 % (18.3-44.2); Mean Corpuscular HGB Conc 33.4 g/dl (32-36); Mean Corpuscular Hemoglobin 28.4 pg (26-34); Mean Corpuscular Volume 85.1 fl (80-100); Mean Platelet Volume 10.5 fl (7.4-10.4); Monocytes Absolute Auto 0.3 K/mm3 (0.1-0.6); Monocytes Percent Auto 4.4 % (2.6-8.5); Neutrophils Absolute Auto 4.4 K/mm3 (1.3-6.7); Neutrophils Percent Auto 78.6 % (45.5-73.1); Platelet Count Result 268 k/mm3 (150-375); Red Blood Count 5.31 M/mm3 (4.2-5.4); White Blood Count 5.7 K/mm3 (4.5-10.0)
[2024-06-14 05:37] LABS: Prothrombin Time 13.9 Seconds (11.1-14.7)
[2024-06-14 05:38] LABS: Alanine Aminotransferase 14 U/L (6-35); Alkaline Phosphatase 55 U/L (38-126); Anion Gap 14 mmol/L (4-12); Aspartate Amino Transferase 20 U/L (14-36); Bilirubin,Total 0.8 mg/dL (0.2-1.3); Blood Urea Nitrogen 17 mg/dL (7-17); Calcium 9.7 mg/dL (8.4-10.2); Carbon Dioxide 24 mmol/L (22-30); Chloride 99 mmol/L (98-107); Estimated CRCL calculation 90 ml/min; Estimated Glomerular Filt Rate > 60; Glucose 98 mg/dL (65-110); Lactic Acid Reflex 1.2 mmol/L (0.7-2.0); Lipase 94 U/L (23-300); Partial Thromboplastin Time 26.9 Seconds (22.3-36.8); Potassium 3.9 mmol/L (3.4-5.0); Sodium 137 mmol/L (137-145)
[2024-06-14 06:10] LABS: Beta HCG Quantitative < 2.39 mIU/ML
[2024-06-14 06:21] LABS: Add Urine Microscopic? YES; Appearance Urine Cloudy (Clear); Bacteria Urine None Seen /hpf; Bilirubin Urine Negative (Negative); Blood Urine Negative (Negative); Color Urine Yellow (Yellow); Glucose Urine UA Negative (Negative); Ketones Urine 4+ mg/dL (Negative); Leukocyte Esterase Ur Negative LEU/UL (Negative); Nitrate Urine Negative (Negative); Non Pathogenic Casts 0-2; Protein Urine Trace mg/dL (Negative); RBC Urine 0-2 /hpf (0-2); Specific Grav Ur 1.026 (1.001-1.035); Squamous Epithelial Cell Urine None Seen /hpf (Few); WBC Urine 0-5 /hpf (0-3); pH Urine 7.5 (5.0-9.0)
[2024-06-14 06:34] LABS: BEDSIDEPREGUCG Negative (Negative)
== END 2024-06-14 07:24 | disposition home or self-care (01) ==
PROVIDERS: Emergency Provider Student in an Organized Health Care Education/Training Program; PCP Internal Medicine
DX: R10.9 Unspecified abdominal pain (principal)
CPT/HCPCS: 36415; 74177; 80053; 81001; 81025; 83605; 83690; 84702; 85025; 85610; 85730; 96361; 96374; 96375; 99284; J1170; J1200; J1885; J2270; J2405; J2765; J7030; J7120; Q9967

== ENCOUNTER 2024-06-14 16:08 | Emergency (ER) | payer OTHER, SELFPAY ==
[2024-06-14 16:21] VITALS: BP 141/90; PULSE 103; RESP 15; TEMP 36.6; O2SAT 100
--- NOTE | 2024-06-14 17:14 | ED.ABDPAIN ---
HPI - Abdominal Pain General Chief Complaint: Abdominal Pain <ELVIRA Salcedo Last Filed: 06/15/24 09:35> Stated Complaint: abd pain <ELVIRA Salcedo Last Filed: 06/15/24 09:35> Time Seen by Provider: 06/14/24 17:14 <Heena Jackson PA-C - Last Filed: 06/15/24 09:35> Focused HPI: This is a 28 year old female that presents to the ER for continued abdominal pain. She was seen in the ER for this this morning. Had negative CT scan. Presents tonight for continued pain and vomiting. Denies fever, dysuria or hematuria. GENERAL: Well-appearing, well-nourished, and in no acute distress. HEAD: Normocephalic, atraumatic. CHEST: Clear to auscultation. ?No respiratory distress. HEART: Regular rate and rhythm.? NEURO: ?Alert and oriented x3. Patient screened in triage and initial orders placed.? ?Additional care and disposition to be based upon?diagnostic testing and treatment. <Heena Jackson PA-C - Last Filed: 06/15/24 09:35> Focused HPI: This is a 28 year old female that presents to the ER for continued abdominal pain. She was seen in the ER for this this morning. Had negative CT scan. Presents tonight for continued pain and vomiting. Denies fever, dysuria or hematuria. GENERAL: Well-appearing, well-nourished, and in no acute distress. HEAD: Normocephalic, atraumatic. CHEST: Clear to auscultation. ?No respiratory distress. HEART: Regular rate and rhythm.? NEURO: ?Alert and oriented x3. Patient screened in triage and initial orders placed.? ?Additional care and disposition to be based upon?diagnostic testing and treatment. <Lou Márquez PA-C - Last Filed: 06/14/24 21:52> Source: patient <ELVIRA Young Last Filed: 06/14/24 21:52> Mode of arrival: ambulatory <ELVIRA Young Last Filed: 06/14/24 21:52> Limitations: no limitations <Lou Márquez PA-C - Last Filed: 06/14/24 21:52> History of Present Illness HPI narrative: Agree with above HPI. Patient reports she took a nap when she returned home from the ED today, but awoke with persistent pain and vomiting. Pain present throughout upper abdomen. Was unable to keep down any of the medication she was given. <oLu Márquez PA-C - Last Filed: 06/14/24 21:52> Related Data Home Medications: Home Medications Medication Instructions Recorded Confirmed acetaminophen 500 mg tablet 1,000 mg PO Q6H PRN Pain 05/08/22 09/11/22 (Tylenol Extra Strength) <Heena Jackson PA-C - Last Filed: 06/15/24 09:35> Allergies/Adverse Reactions: Allergies Allergy/AdvReac Type Severity Reaction Status Date / Time No Known Allergies Allergy Verified 06/12/24 20:42 <Heena Jackson PA-C - Last Filed: 06/15/24 09:35> Review of Systems Review of Systems: All systems reviewed & are unremarkable except as noted in HPI. <Lou Márquez PA-C - Last Filed: 06/14/24 21:52> All systems reviewed & are unremarkable except as noted in HPI and below <Lou Márquez PA-C - Last Filed: 06/14/24 21:52> [facility]LY [facility] Past Medical History Medical History: Medical History Morbid obesity with BMI of 40.0-44.9, adult No significant past medical history Pain during labor <Heena Jackson PA-C - Last Filed: 06/15/24 09:35> Surgical History Surgical History: Surgical History History of tonsillectomy <Heena Jackson PA-C - Last Filed: 06/15/24 09:35> Family History Family History: Family History Mother Anxiety Grandparent Lymphoma <Heena Jackson PA-C - Last Filed: 06/15/24 09:35> Social History Social History: Social History Smoking status: Never smoker Substance use: never [place]
[2024-06-14 17:55] LABS: Basophils Percent Auto 0.4 % (0.2-1.2); Eosinophils Percent Auto 0.3 % (0-4.4); Hematocrit 41.4 % (37.0-47.0); Hemoglobin 13.9 g/dL (12.0-15.0); Immature Granulocyte Absolute 0.02 K/mm3 (0.00-0.031); Immature Granulocyte Percent A 0.3 % (0-0.5); Lymphocytes Absolute Auto 1.66 K/mm3 (0.9-3.2); Lymphocytes Percent Auto 23.5 % (18.3-44.2); Mean Corpuscular HGB Conc 33.6 g/dl (32-36); Mean Corpuscular Hemoglobin 28.7 pg (26-34); Mean Corpuscular Volume 85.5 fl (80-100); Mean Platelet Volume 10.1 fl (7.4-10.4); Monocytes Absolute Auto 0.4 K/mm3 (0.1-0.6); Monocytes Percent Auto 5.8 % (2.6-8.5); Neutrophils Absolute Auto 4.9 K/mm3 (1.3-6.7); Neutrophils Percent Auto 69.7 % (45.5-73.1); Platelet Count Result 244 k/mm3 (150-375); Red Blood Count 4.84 M/mm3 (4.2-5.4); Red Cell Distribution Width 11.9 % (11.5-14.5); White Blood Count 7.1 K/mm3 (4.5-10.0)
[2024-06-14 18:10] LABS: Alanine Aminotransferase 12 U/L (6-35); Albumin Level 4.6 g/dL (3.5-5.1); Alkaline Phosphatase 50 U/L (38-126); Anion Gap 13 mmol/L (4-12); Aspartate Amino Transferase 18 U/L (14-36); Bilirubin,Total 0.8 mg/dL (0.2-1.3); Blood Urea Nitrogen 12 mg/dL (7-17); Calcium 9.2 mg/dL (8.4-10.2); Carbon Dioxide 24 mmol/L (22-30); Chloride 100 mmol/L (98-107); Estimated CRCL calculation 90 ml/min; Estimated Glomerular Filt Rate > 60; Glucose 84 mg/dL (65-110); Lipase 93 U/L (23-300); Potassium 3.5 mmol/L (3.4-5.0); Sodium 137 mmol/L (137-145)
[2024-06-14] MEDS: diphenhydrAMINE HCl INJ 50 MG/ML VIAL 25 MG IV PUSH (18:53)
[2024-06-14] MEDS: MORPHINE SULFATE (*CRX) 4 MG/ML INJ IV PUSH (18:54)
[2024-06-14] MEDS: FAMOTIDINE 20 MG/2 ML VIAL IV PUSH (18:54)
[2024-06-14] MEDS: METOCLOPRAMIDE HCL INJ 10 MG/2 ML VIAL IV PUSH (18:54)
[2024-06-14] MEDS: SODIUM CHLORIDE 0.9% IV 1,000 ML 999 ML IV CONT ×2 (18:54→18:55)
[2024-06-14 19:17] VITALS: BP 138/89; PULSE 112; RESP 20; O2SAT 100
[2024-06-14 21:08] VITALS: PULSE 91; RESP 18; O2SAT 100
[2024-06-14] MEDS: KETOROLAC 30 MG/ML VIAL (*BKC) IV PUSH (21:25)
[2024-06-14 21:26] VITALS: BP 106/63; PULSE 107; RESP 17; O2SAT 99
== END 2024-06-14 21:45 | disposition home or self-care (01) ==
PROVIDERS: Physician Assistant; Emergency Provider Physician Assistant; PCP Internal Medicine
DX: R10.9 Unspecified abdominal pain (principal); R11.2 Nausea with vomiting, unspecified
CPT/HCPCS: 36415; 80053; 83690; 85025; 96361; 96374; 96375; 99284; J1200; J1885; J2270; J2765; J7030

== ENCOUNTER 2024-06-16 05:29 | Emergency (ER) | payer OTHER, SELFPAY ==
[2024-06-16] VITALS (7 sets, daily range): BP systolic 129–148; BP diastolic 82–105; PULSE 80–98; RESP 15–20; TEMP 36.6–37; O2SAT 100
[2024-06-16 06:26] LABS: BEDSIDEPREGUCG Negative (Negative)
[2024-06-16 06:33] LABS: Add Urine Microscopic? NO; Appearance Urine Clear (Clear); Bilirubin Urine Negative (Negative); Blood Urine Negative (Negative); Color Urine Yellow (Yellow); Glucose Urine UA Negative (Negative); Ketones Urine 4+ mg/dL (Negative); Leukocyte Esterase Ur Negative LEU/UL (Negative); Nitrate Urine Negative (Negative); Protein Urine Negative (Negative); Specific Grav Ur 1.022 (1.001-1.035)
[2024-06-16 06:36] LABS: Basophils Percent Auto 0.3 % (0.2-1.2); Hematocrit 39.9 % (37.0-47.0); Hemoglobin 13.8 g/dL (12.0-15.0); Immature Granulocyte Percent A 0.3 % (0-0.5); Mean Corpuscular HGB Conc 34.6 g/dl (32-36); Mean Corpuscular Hemoglobin 29.2 pg (26-34); Mean Corpuscular Volume 84.4 fl (80-100); Mean Platelet Volume 10.3 fl (7.4-10.4); Monocytes Percent Auto 2.1 % (2.6-8.5); Neutrophils Percent Auto 83.3 % (45.5-73.1); Platelet Count Result 226 k/mm3 (150-375); Red Blood Count 4.73 M/mm3 (4.2-5.4); Red Cell Distribution Width 11.9 % (11.5-14.5); White Blood Count 6.6 K/mm3 (4.5-10.0)
[2024-06-16 06:37] LABS: Immature Granulocyte Absolute 0.02 K/mm3 (0.00-0.031); Lymphocytes Absolute Auto 0.93 K/mm3 (0.9-3.2); Monocytes Absolute Auto 0.1 K/mm3 (0.1-0.6); Neutrophils Absolute Auto 5.5 K/mm3 (1.3-6.7)
[2024-06-16 06:48] LABS: Alanine Aminotransferase 13 U/L (6-35); Albumin Level 4.7 g/dL (3.5-5.1); Alkaline Phosphatase 51 U/L (38-126); Anion Gap 18 mmol/L (4-12); Aspartate Amino Transferase 21 U/L (14-36); Bilirubin,Total 0.9 mg/dL (0.2-1.3); Blood Urea Nitrogen 10 mg/dL (7-17); Calcium 9.1 mg/dL (8.4-10.2); Carbon Dioxide 20 mmol/L (22-30); Chloride 100 mmol/L (98-107); Estimated CRCL calculation 101 ml/min; Estimated Glomerular Filt Rate > 60; Glucose 98 mg/dL (65-110); Lipase 101 U/L (23-300); Potassium 3.7 mmol/L (3.4-5.0); Sodium 138 mmol/L (137-145)
[2024-06-16] MEDS: PROMETHAZINE HCL 25 MG/ML AMPUL 12.5 MG IV PUSH (07:47)
[2024-06-16] MEDS: DICYCLOMINE HCL INJ 20 MG/2 ML VIAL IM (07:47)
[2024-06-16] MEDS: SODIUM CHLORIDE 0.9% IV 1,000 ML 999 ML IV CONT (07:47)
--- NOTE | 2024-06-16 09:05 | ED.NAVMDI ---
HPI - Nausea/Vomiting/Diarrhea General Chief complaint: Nausea/Vomiting/Diarrhea Stated complaint: n/v Time Seen by Provider: 06/16/24 07:05 History of Present Illness HPI Narrative: Patient is a 28-year-old female who presents ER with nausea and vomiting. Began yesterday at 4:00 p.m.. Has diffuse abdominal cramping. No fevers or chills or sweats. No diarrhea. Had similar symptoms earlier in the week that she had labs and imaging for that were unremarkable. Has found no alleviating factors at home. Has not seen GI. No blood in stool or emesis. Related Data Home Medications Medication Instructions Recorded Confirmed acetaminophen 500 mg tablet 1,000 mg PO Q6H PRN Pain 05/08/22 09/11/22 (Tylenol Extra Strength) Allergies Allergy/AdvReac Type Severity Reaction Status Date / Time No Known Allergies Allergy Verified 06/12/24 20:42 [facility] Past Medical History Medical History Morbid obesity with BMI of 40.0-44.9, adult No significant past medical history Pain during labor Surgical History Surgical History History of tonsillectomy Family History Family History Mother Anxiety Grandparent Lymphoma Social History Social History Smoking status: Never smoker Substance use: never Lack of Transportation: No Lack of Food: Never True Current Housing: I Have Housing Concerned About Future Housing: No Difficulty Paying Gas/Electric Bills: No Difficulty Paying for Meds: No Currently Unemployed: No Education: High School Diploma/GED Difficulty w/ Childcare or Family Care: No Spiritual care concerns: No Exam Narrative: GENERAL: Anxious and tearful-appearing, well-nourished, and in no acute distress. HEAD: Normocephalic, atraumatic. ENT: Mucous membranes moist. CHEST: Clear to auscultation. No respiratory distress. HEART: Regular rate and rhythm. Normal peripheral pulses. ABDOMEN: Soft, nontender, nondistended. EXTREMITIES: Normal range of motion. No edema. SKIN: Warm, dry, no rash. NEURO: Alert and oriented x3. PSYCH: Normal mood and affect. Course Course Emergency Course: Patient's previous visits have been reviewed. Labs unremarkable. Recent imaging showed no acute process. Patient given antiemetics in the ER. Discussed with her that she will need to follow-up with GI outpatient. There is no acute life-threatening emergency or surgical emergency to admit for. Vital Signs Vital signs: Vital Signs Temperature 98.6 F 06/16/24 05:33 Pulse Rate 84 06/16/24 05:33 Respiratory Rate 18 06/16/24 05:33 Blood Pressure 136/96 H 06/16/24 05:33 Pulse Oximetry 100 06/16/24 05:33 Oxygen Delivery Room Air 06/16/24 05:33 Temperature 98.0 F 06/16/24 11:12 Pulse Rate 80 06/16/24 11:12 Respiratory Rate 15 06/16/24 11:12 Blood Pressure 132/82 06/16/24 11:12 Pulse Oximetry 100 06/16/24 11:12 Oxygen Delivery Room Air 06/16/24 05:33 MDM - Nausea/Vomiting/Diarrhea Lab Data 06/16/24 06:30 06/16/24 06:30 Labs: Lab Results 06/16/24 06/16/24 06/16/24 Range/Units 06:22 06:24 06:30 WBC 6.6 (4.5-10.0) K/mm3 RBC 4.73 (4.2-5.4) M/mm3 Hgb 13.8 (12.0-15.0) g/dL Hct 39.9 (37.0-47.0) % MCV 84.4 (80-100) fl MCH 29.2 (26-34) pg MCHC 34.6 (32-36) g/dl RDW 11.9 (11.5-14.5) % Plt Count 226 (150-375) k/mm3 MPV 10.3 (7.4-10.4) fl Immature Gran % (Auto) 0.3 (0-0.5) % Neut % (Auto) 83.3 H (45.5-73.1) % Lymph % (Auto) 14.0 L (18.3-44.2) % [place] % (Auto) 2.1 L (2.6-8.5) % Eos % (Auto) 0.0 (0-4.4) % Baso % (Auto) 0.3 (0.2-1.2) % Lymph # (Auto) 0.93 (0.9-3.2) K/mm3 [place] # (Auto) 0.1 (
--- NOTE | 2024-06-16 10:03 | PC.NURSE ---
c/o nausea and worse abd pain after eating azalia crackers and drinking juice.
[2024-06-16] MEDS: ONDANSETRON INJ 4 MG/2 ML VIAL IV PUSH (10:07)
[2024-06-16] MEDS: KETOROLAC 15 MG/ML VIAL (*BKC) IV PUSH (10:07)
--- NOTE | 2024-06-16 10:46 | PC.NURSE ---
Resting on cart with eyes closed. Reports she doesn't feel any better after meds. No emesis noted since this use took over at 0700.
== END 2024-06-16 12:18 | disposition home or self-care (01) ==
PROVIDERS: Emergency Medicine; Emergency Provider Emergency Medicine; PCP Internal Medicine
DX: R10.9 Unspecified abdominal pain (principal)
CPT/HCPCS: 36415; 80053; 81003; 81025; 83690; 85025; 96361; 96372; 96374; 96375; 99284; J0500; J1885; J2405; J2550; J7030

== ENCOUNTER 2025-04-28 13:04 | Outpatient (CLI) | payer OTHER, SELFPAY ==
--- OUTSIDE RECORDS SUMMARY | 2025-04-28 13:16 | XMS_ITS | Data Portability ---
Author Organization [facility], Main Office Address [address] [place] [address] Assessment No assessment recorded. Plan of Treatment Reminders Order Date Submit Date Provider Last Modified By Organization Details Last Modified Time Details Appointments None recorded. Lab MELINDA + rf (antinuclea r antibodies + rheumatoid factor), quantitativ e, serum [address] (Lab), [address] [place], [address], 5 10:56:06 CBC [address] (Lab), [address] [place], [address], 5 09:25:48 TSH, serum or plasma [address] (Lab), [address] [place], [address], 5 09:25:48 glycohemogl obin, total, blood 2024 025 [facility] (Lab), [address] [place], [address], 5 10:20:51 uric acid, serum or plasma [address] (Lab), [address] [place], [address], 10:56:06 C-reactive protein, quantitativ e, serum or plasma [address] (Lab), [address] [place], [address], 09:25:48 erythrocyte sedimentati on rate, QN, blood [address] (Lab), [address] [place], [address], 09:25:48 Referral None recorded. Procedures None recorded. Surgeries None recorded. Imaging None recorded. Medication Orders omalizumab 150 mg/mL subcutaneou s syringe [address] [facility] ([place], [place]Pharmacy #[id number], [address], [place], [address], 14:00:29 Mounjaro 2.5 mg/0.5 mL subcutaneou s pen injector 2024 025 [facility], [address], [place], [address], 14:00:24 Patient TargetsNo targets recorded. Patient Instructions Encounter Date Encounter Id Patient Instructions Last Modified By Organization Details Last Modified Time 04/12/2025 [id number] Continue to workout and eat well regularly. Continue to increase water intake at this time. Continue daily zyrtec. Continue skin care and allergy regimen as discussed. Will notify patient of lab results. [email or web address] Not available 04/12/2025 13:52:32 Discussed labs and next steps after reviewing results. All questions and concerns addressed at this time. Not available 04/12/2025 13:59:17 Reason for Referral None Reported. Results Created Date Observation Date Name Description Value Unit Range Abnormal Flag Note LastModifiedBy Organization Detail LastModifiedTime Result Notes None recorded. Problems Name Problem SNOMED Code Status Onset Date Resolution Date Notes Provider Name and Address Organization Details Recorded Time Herpes labialis 6605342 Completed Not Available [facility] 3 15:16:17 Abdominal pain 25508072 Completed 03/15/2023 Alisha dill RMA dominik, [employer] [facility] 3 15:18:55 Cyst of ovary 41123283 Active Not Available [facility] 3 15:16:17 Irregular periods 33678828 Active Alisha dill RMA dominik, [facility] [facility] [employer] [facility] 3 15:18:50 Herpes simplex 13752507 Completed Not Available [facility] 3 15:16:17 Eruption 553274898 Active 2022 EDYTA Zayas, [facility] [facility] [employer] [facility] 3 15:18:52 Idiopathic urticaria 28918920 Active 2024 NEREIDA Santiago-Kelvin [address], [address], [place], [address] , [facility] [facility] [employer] [facility] 5 11:40:20 Raised antinuclea r antibody 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 Active 2024 MARYELLEN SantiagoC [address], [address], [place], [address] , [facility] [facility] [employer] [facility] 5 12:31:15 Pain of multiple joints 37220906 Active 2024 CAMILO Santiago [address], [address], [place], [address] , [facility] [facility] [employer] [facility] 5 12:31:35 Fatigue 11939607 Active 2024 NEREIDA Santiago-C [address], [address], [place], [address] , [facility] [facility] [employer] [facility] 5 13:08:42 Body mass index 30+ - obesity 631238513 Active 2024 NEREIDA Santiago-C [address], [address], [place], [address] , [facility] [facility] [employer] [facility] 13:16:37 Problem Notes None recorded. Medical Equipment None Reported. Medications Name Sig Start Date Stop Date Status Note LastModified by Organization Details LastModified Time amoxicillin 500 mg capsule TAKE 1 CAPSULE BY MOUTH THREE TIMES DAILY FOR 7 DAYS. 04/12 completed Not Available Not Available Not Available Aviane 0.1 mg-20 mcg tablet Take 1 tablet every day by oral route as directed. active Not Available Not Available No t Available prednisone 10 mg tablet Take 5 tabs X 3 days, then 4 tabs X 3 days, 3 tabs X 2 days, 2 tabs X 2 days, 1 tab X 2 day 04/12 completed Not Available Not Available Not Available azithromyci n 250 mg tablet Take 2 TABLET EVERY DAY by oral route for 1 day. then 1 tab a day for 4 days 03/07 completed Not Available Not Available Not Available benzonatate 200 mg capsule Take 1 capsule 3 times a day by oral route. active Not Available Not Available No t Available Medrol (Livan) 4 mg tablets in a dose pack Take as directed 04/12 completed Not Available Not Available Not Available acyclovir 400 mg tablet TAKE ONE TABLET BY MOUTH THREE TIMES DAILY FOR 5 DAYS active Not Available Not Available No t Available valacyclovi r 500 mg tablet TAKE 1 TABLET BY MOUTH EVERY DAY 04/12 completed Not Available Not Available Not Available amoxicillin 500 mg tablet Take 1 tablet 3 times a day by oral route for 7 days. 04/12 completed Not Available Not Available Not Available hydroxyzine HCl 10 mg tablet Take 1 tablet 3 times a day by oral route. 04/12 completed Not Available Not Available Not Available dicyclomine 10 mg capsule Take 1 capsule 3 times a day by oral route as needed. 03/07 completed Not Available Not Available Not Available naproxen 500 mg tablet active Not Available Not Available Not Available Tri-Sprinte c (28) 0.18 mg(7)/0.215 mg(7)/0.25 mg(7)-0.035 mg tablet Take 1 tablet(s) EVERY DAY by oral route. 03/07 completed Not Available Not Available Not Available Lo Loestrin Fe 1 mg-10 mcg (24)/10 mcg (2) tablet Take 1 tablet every day by oral route. 03/07 completed Not Available Not Available Not Available Xulane 150 mcg-35 mcg/24 hr transdermal patch Apply 1 patch every week by transderm al route. 04/12 completed Not Available Not Available Not Available omalizumab 150 mg/mL subcutaneou s syringe Inject 2 mL every month by subcutane ous route for 30 days, for idiopathi c Hives/itc feli. 2024 active Not Available Not Available Not Avai lable Mounjaro 2.5 mg/0.5 mL subcutaneou s pen injector INJECT 2.5 MG EVERY WEEK BY SUBCUTANE OUS ROUTE FOR 30 DAYS. active Not Available Not Available No t Available Zepbound 2.5 mg/0.5 mL subcutaneou s pen injector Inject 2.5 mg every week by subcutane ous route for 30 days. 2024 active Not Available Not Available Not Avai lable Vitals Date Recorded Body weight Body mass index (BMI) Body height Body temperature Heart rate Oxygen saturation Oxygen saturation in Arterial blood by Pulse oximetry Systolic And Diastolic Provider Name and Address Organization Details Last Updated DateTime 5 07737.9 2 g 33.3 kg/m2 162.56 cm 97.4 [degF] 74 /min 98 % 98 % 130/70 mm[Hg] EDYTA Perales [place] [employer] [facility] 12:19:20 Social History None recorded. 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 Family History Nothing Reported. Medical History No medical history recorded. Gynecological HistoryNo gynecological history recorded. Obstetrics History GPAL:G 0 P 0 0 0 0 Past Encounters Encounter ID Performer Location Encounter Start Date Encounter Closed Date Diagnosis/Indication Diagnosis SNOMED-CT Code Diagnosis ICD10 Code Diagnosis Note [id number] Naldo Figueroa MD [facility] [address] [facility] [place] [address] 04/12/2025 12:12:39 04/12/2025 14:01:38 Idiopathic urticaria 09403609 L50.1 Pain of mu ltiple joints 77510450 M25.50 labs ordered History of clinical finding in subject 609976028 Z87.898 labs ordered Fatigue 99532506 R53.82 Screening for cardiovascular system disease 454267783 Z13.6 Body mass index 30+ - obesity 070866038 E66.9 Health Concerns Section Related Observation LastModified by Organization Detai ls LastModified Time None Recorded Concern Status LastModified by Organization Details LastModified Time None Recorded Advance Directives Directive None Recorded Payers Insurance Date Sequence Insurance Name Policy Number Policy Floyd Covered Member ID Floyd Member ID Guarantor Name 04/12/2025 1 [facility] (PP[facility]) [id number] Alishamartin Obrien [id number] Jessica Daniel Siddiqui 04/26/2025 1 [facility] [id number] Jessica Greenwood [id number] Jessica Siddiqui Notes Date Note Type Note Provider Name and Address Organization Details Recorded Time 04/12/2025 text/html Patient is 29y/o female who is here for concerns of itching. Patient has a history of idiopathic urticaria who has been treated with injection in the past. She recently had increasing flare ups and pain. She reports that she currently takes zyrtec BID daily and steroids as needed for flare ups but no longer helps. She reports that is has become so bad her previous interventional technologist began xolair injections. She also reports that she has having increased fatigue and joint aches. She also is wanting to restart mounjaro. She reports that she has not lost any weight since beginning her diet and exercises. She reports working out several times a week and feels she has plateaued. She denies any history of chest pains, shortness of breath, bruising, thyroid cancer, abdominal pains, pancreatis, N/V, fevers, facial rashes and recent illness MELINDA titer- elevated on previous lab work- recheck ordered zyrtec 2 tablets dailyprednisone for flare ups- every day/ any time mornings are worse with eyes are swolen- scalps [facility] [place] [address] [place] [id number] BMI >30 CAMILO Santiago [address] [facility], [facility] [address], [place], [address], [facility] 04/12/2025 14:00:44 OBGyn Episode No OBEpisode recorded.
--- OUTSIDE RECORDS SUMMARY | 2025-04-28 13:17 | XMS_ITS | Data Portability ---
Author Organization [facility] Address [address] [place] [address] Care Team Providers Care Rivet Spinner Name Role Phone GUILLERMINA BARBOSA Primary Care Provider Assessment Encounter Date Assessment Date Assessment LastModified by Organization Details LastModified Time 04/16/2023 04/16/2023 Annual gynecological exam performed. Patient will come back in a year unless there are new symptoms. Suggest Calcium with Vitamin D if not eating in diet. Patient advised to get annual flu shot. Recommend yearly physicals and preform monthly breast exams. Genetic testing is available for patients with family history of cancer. Engage in safe sexual practices, use condoms. Encouraged to have daily exercise. Avoid tobacco and illicit drugs, moderation of alcohol. If BMI greater than 25 dietary consult advised. If you have any questions please call or email. Not available 04/16/2023 12:44:40 Plan of Treatment Reminders Order Date Submit Date Provider Last Modified By Organization Details Last Modified Time Details Appointments U/S OB SNEAK PEAK 2024 11:00A M ULTRASOUND Not available Not available Not available OB SCREEN 2024 11:30A M Heidi Douglas CNM Not available Not available Not available [facility] 2024 03:15P M Heidi Douglas CNM Not available Not available Not available Lab None recorde d. Referral None recorde d. Procedures None recorde d. Surgeries None recorde d. Imaging None recorde d. Medication Orders Mounjar o 7.5 mg/0.5 mL subcuta neous pen injecto r 2022 023 ADRIANA [facility], [address], [place], [address], 05/21/2023 09:44:08 Mounjar o 7.5 mg/0.5 mL subcuta neous pen injecto r 2022 023 HASKINS [facility], [address], [place], [address], 04/22/2023 10:13:51 Mounjar o 7.5 mg/0.5 mL subcuta neous pen injecto r 2022 023 HASKINS [facility], [address], [place], [address], 03/19/2023 09:36:39 Mounjar o 5 mg/0.5 mL subcuta neous pen injecto r 2022 023 [email or web address] [facility], [address], [place], [address], 04/16/2023 12:34:21 Patient TargetsNo targets recorded. Patient InstructionsNo instructions recorded. Reason for Referral None Reported. Results Created Date Observation Date Name Description Value Unit Range Abnormal Flag Note LastModifiedBy Organization Detail LastModifiedTime 04/16/20 23 04/16/2023 IMAGE GUIDE D PAP, REFLE X HPV IF ASCUS ONLY image guided Pap, reflex HPV ASCUS only SEE RESULT S BELOW CASE REPOR T: Cytol ogy Gynec ologi nacho Repor t Case: [id number] Autho cinda mcneil Provi marley: Heidi Juarez NP Colle cted: 04/16 1546 Order ing Locat ion: [place] [facility] Recei israel: 04/17 0157 First Scree n: Gaby Siddiqui ay, CT Speci men: Scree wendy Pap - Image d, Cervi x STATE MENT OF ADEQU ACY: Satis facto ry for evalu ation Trans forma tion zone compo nent prese nt FINAL DIAGN OSIS: Negat bhavesh for Intra epith elial Lesio n or Amando chacon (NIL) . Elect regis koo abigail d by Gaby Siddiqui, CT on 2022 at 2:25 PM ----- ----- ----- ----- ----- ----- ----- ----- ----- ----- ----- ----- ----- ----- ----- ----- ----- ---- COMME NT: This speci men was revie wed by a Cytot echno logis t and/o r Patho logis t (as indic ated in this repor t) after evalu ation using the Thinp rep Imagi ng Syste m. CLINI NACHO INFOR MATIO N: Menst rual Statu s: LMP (if appli cable ): Clini nacho Histo ry/Pr eviou s Pap: Type of Neopl shin (if appli cable ): Signi fican t Clini nacho Findi ngs: Other Histo ry: Hormo deacon (if appli cable ): PAP EDUCA MERLE L NOTE: The Pap Test is a scree wendy test with an inher ent false negat bhavesh rate. Liqui d-bas ed sampl ing may decre ase, but will not elimi jorje, false negat bhavesh resul ts. A negat bhavesh resul t does not precl ude the prese nce and/o r devel opmen t of disea se, since the prese nce of abnor mal cells in the sampl e depen ds on the locat ion of the lesio n and sampl ing techn ique. Lizz nued regul ar scree wendy is the best metho d of cance r preve ntion . If repor sebastián cytol ogic findi ng do not corre late with physi nacho and/o r histo rical findi ngs, furth er inves tigat ion is recom kayden d, as clini keenan torres nted. Not Available [facility] (Lab) [address], [place], [address], 04/19/2023 15:27:59 04/24/20 25 04/24/2025 BHCG, QUANT ITATI VE B-HCG 658.0 mIU/m L 0.0-4. 9 high This assay was perfo rmed using [employer] n reage nts and test kits. Value s obtai nicolas with other assay metho ds or kits canno t be used inter [facility] . Refer ence Range s: Non-p regna nt, preme nopau shannon women : 0.0-4 .9 mIU/m L Postm enopa usal women : 0.0-7 .0 mIU/m L Yasmine l Pregn edna: Gesta merle l Age bHCG Conc. - mIU/m L 3 Weeks 5.8 - 71.7 4 Weeks 9.5 - 750 5 Weeks 217-7 138 6 Weeks 158 - 31,79 5 7 Weeks 3,697 - 162,5 63 8 Weeks 32,06 5 - 149,5 71 9 Weeks 63,80 3 - 151,4 10 10 Weeks 46,50 9 - 186,9 77 12 Weeks 27,83 2 - 210,6 12 14 Weeks 13,95 0 - 62,53 0 15 Weeks 12,03 9 - 70,97 1 16 Weeks 9,040 - 56,45 1 17 Weeks 8,175 - 55,86 8 18 Weeks 8,099 - 58,17 6 Not Available [facility] (Lab) [address] [facility], [place], [address], 04/25/2025 04:44:49 04/26/20 25 04/26/2025 BHCG, QUANT ITATI VE B-HCG 1670.0 mIU/m L 0.0-4. 9 high This assay was perfo rmed using [employer] reage nts and test kits. Value s obtai nicolas with other assay metho ds or kits canno t be used inter [facility] . Refer ence Range s: Non-p regna nt, preme nopau shannon women : 0.0-4 .9 mIU/m L Postm enopa usal women : 0.0-7 .0 mIU/m L Yasmine l Pregn edna: Gesta merle l Age bHCG Conc. - mIU/m L 3 Weeks 5.8 - 71.7 4 Weeks 9.5 - 750 5 Weeks 217-7 138 6 Weeks 158 - 31,79 5 7 Weeks 3,697 - 162,5 63 8 Weeks 32,06 5 - 149,5 71 9 Weeks 63,80 3 - 151,4 10 10 Weeks 46,50 9 - 186,9 77 12 Weeks 27,83 2 - 210,6 12 14 Weeks 13,95 0 - 62,53 0 15 Weeks 12,03 9 - 70,97 1 16 Weeks 9,040 - 56,45 1 17 Weeks 8,175 - 55,86 8 18 Weeks 8,099 - 58,17 6 Not Available [facility] (Lab) [address], [place], [address], 04/27/2025 08:19:12 Result Notes None recorded. Problems Name Problem SNOMED Code Status Onset Date Resolution Date Notes Provider Name and Address Organization Details Recorded Time Pregnanc y-induce d hyperten kinga 19723002 Completed hx of baby asa Antonieta lehman [facility] 3 12:48:53 Headache 59034873 Completed Antonieta lehman [facility] 3 12:48:53 Maternal obesity complica ting pregnanc y, childbir th and the puerperi um, antepart um 2012641560 07 Completed BMI >35 prepreg- need to discuss ante testing next visit. Antonieta lehman [facility] 3 12:48:53 Pregnanc y 60427424 Completed 202110/30/2022 Celeste lehman [facility] 3 10:02:20 Constipa tion 85379225 Completed 2021 colace Antonieta lehman [facility] 3 12:48:53 Nausea 943868080 Completed 2021 zofran 8mg Antonieta medina null, [facility] 3 12:48:53 Low lying placenta 714458438 Completed 2021 Jeovanny [facility] baseline U/S 05/29, resolved Debra Miranda MD [address], [place], [address], [facility] 2 10:19:43 Past pregnanc y history of gestatio nal hyperten kinga 799468780 Active 2021 Debra Miranda MD [address], [place], [address], [facility] 2 10:29:39 Problem Notes None recorded. Procedures Surgical History Date Name Laterality Status Provider Name and Address Organization Details Recorded Time 04/16/20 23 Date of Last Pap Smear completed Katelyn Vasquez [facility] 04/16/2023 12:35:04 10/04/19 15 Tonsillectomy completed Katelyn Vasquez [facility] 02/04/2022 14:40:21 Imaging Results None recorded. Procedure Notes None recorded. Medical Equipment None Reported. Allergies No known drug allergies Medications Name Sig Start Date Stop Date Status Note LastModified by Organization Details LastModified Time amoxicill in 500 mg capsule 02/04 completed Not Available Not Available Not Available prednison e 10 mg tablet PLEASE SEE ATTACHED FOR DETAILED DIRECTIO NS 04/16 completed Not Available Not Available Not Available acetamino phen 300 mg-codein e 30 mg tablet TAKE 1 TABLET BY MOUTH EVERY 6 HOURS NEEDED FOR PAIN 12/25 completed Not Available Not Available Not Available valacyclo vir 500 mg tablet active Not Available Not Available No t Available amoxicill in 500 mg tablet 02/04 completed Not Available Not Available Not Available ondansetr on 8 mg disintegr ating tablet DISSOLVE 1 TABLET IN MOUTH TWICE DAILY 10/09 completed Not Available Not Available Not Available ibuprofen 600 mg tablet TAKE 1 TABLET BY MOUTH EVERY 6 HOURS NEEDED FOR CRAMPING 04/16 completed Not Available Not Available Not Available methylpre dnisolone 4 mg tablets in a dose pack 04/16 completed Not Available Not Available Not Available hydroxyzi ne HCl 10 mg tablet 04/16 completed Not Available Not Available Not Available sertralin e 50 mg tablet TAKE 1 TABLET BY MOUTH EVERY DAY 04/16 completed Not Available Not Available Not Available amoxicill in 875 mg-potass ium clavulana te 125 mg tablet TAKE 1 TABLET BY MOUTH EVERY 12 HOURS UNTIL GONE 12/25 completed Not Available Not Available Not Available cyclobenz aprine 5 mg tablet TAKE 1 TABLET BY MOUTH 3 TIMES A DAY 10/09 completed Not Available Not Available Not Available nitrofura ntoin monohydra te/macroc rystals 100 mg capsule TAKE 1 CAPSULE BY MOUTH EVERY 12 HOURS 05/29 completed Not Available Not Available Not Available Vitamins 04/16 completed Not Available Not Available Not Available cholecalc iferol (vitamin D3) 1,250 mcg (50,000 unit) capsule TAKE 1 CAPSULE BY MOUTH ONCE WEEKLY 04/16 completed Not Available Not Available Not Available Fioricet 50 mg-300 mg-40 mg capsule Take 1 capsule every 4 hours by oral route. 02/19 completed Not Available Not Available Not Available Slynd 4 mg (28) tablet take 1 tablet by oral route every day at the same time each day 02/[address] [facility] odify By: omari duque DateTime : 08/04/20 19 02:45:00 PM Not Available Not Available Not Available BinaxNOW COVID-19 Ag Self Test kit 07/07 completed Not Available Not Available Not Available Wegovy 0.5 mg/0.5 mL subcutane ous pen injector INJECT THE CONTENTS OF 1 PEN UNDER THE SKIN ONCE WEEKLY 04/16 completed Not Available Not Available Not Available Mounjaro 7.5 mg/0.5 mL subcutane ous pen injector INJECT 7.5 MG EVERY WEEK BY SUBCUTAN EOUS ROUTE. 2022 active Not Available Not Available Not Avai lable Mounjaro 5 mg/0.5 mL subcutane ous pen injector Inject 5 mg every week by subcutan eous route. 2022 active Not Available Not Available Not Avai jorge alberto Mounjaro 2.5 mg/0.5 mL subcutane ous pen injector Inject 2.5 mg every week by subcutan eous route. 04/16 completed Not Available Not Available Not Available Vitals Date Recorded Body height Body mass index (BMI) Body weight Systolic And Diastolic Provider Name and Address Organization Details Last Updated DateTime 02/19/2023 162.56 cm 37.6 kg/m2 67234.45 g 116/80 mm[Hg] [facility] 02/19/2023 09:56:20 Date Recorded Body height Body mass index (BMI) Body weight Systolic And Diastolic Provider Name and Address Organization Details Last Updated DateTime 03/19/2023 162.56 cm 36.7 kg/m2 87660.77 g 130/81 mm[Hg] [facility] 03/19/2023 09:34:42 Date Recorded Body height Body mass index (BMI) Body weight Systolic And Diastolic Provider Name and Address Organization Details Last Updated DateTime 04/16/2023 162.56 cm 35.4 kg/m2 96183.03 g 119/91 mm[Hg] [facility] 04/16/2023 12:34:04 Date Recorded Body height Body mass index (BMI) Body weight Systolic And Diastolic Provider Name and Address Organization Details Last Updated DateTime 04/22/2023 162.56 cm 35 kg/m2 16634.84 g 126/83 mm[Hg] Katelyn [facility] 04/22/2023 10:04:23 Date Recorded Body height Body mass index (BMI) Body weight Systolic And Diastolic Provider Name and Address Organization Details Last Updated DateTime 05/21/2023 162.56 cm 34.3 kg/m2 77697.47 g 114/72 mm[Hg] [facility] 05/21/2023 09:35:35 Social History Question Answer Notes LastModified by Organizat ion Details LastModified Time Tobacco Smoking Status Never Smoker Katelyn Vasquez [facility], [facility] 02/04/2022 14:40:02 Are You Blind Or Do You Have Difficulty Seeing? No [email or web address] Information n ot available 02/04/2022 What Is Your Level Of Caffeine Consumption? Occasional [email or web address] Information not available 02/04/2022 In The 14 Days Before Symptom Onset, Have You Had Close Contact With A Laboratory-confirm ed COVID-19 While That Case Was Ill? No [email or web address] Information n ot available 02/04/2022 In The 14 Days Before Symptom Onset, Have You Had Close Contact With A Person Who Is Under Investigation For COVID-19 While That Person Was Ill? No [email or web address] Information not available 02/04/2022 Have You Been To An Area Known To Be High Risk For COVID-19? No [email or web address] Information not available 02/04/2022 Are You Deaf Or Do You Have Serious Difficulty Hearing? No [email or web address] Information not available 02/04/2022 What Type Of Diet Are You Following? REGULAR [email or web address] Information n ot available 02/04/2022 Have You Ever Been Counseled For Unhealthy Alcohol Use? No [email or web address] Information not available 02/04/2022 Do You Use Your Seat Belt Or Car Seat Routinely? Yes [email or web address] Information not available 02/04/2022 Do You Have Smoke And Carbon Monoxide Detectors In Your Home? Yes [email or web address] Information not available 02/04/2022 Do You Use Sunscreen Routinely? Yes [email or web address] Information not available 02/04/2022 Has Tobacco Cessation Counseling Been Provided? No [email or web address] Information not available 02/04/2022 Do You Have Difficulty Walking Or Climbing Stairs? No [email or web address] Information not available 02/04/2022 Sex: Unknown Functional Status Question Answer Note LastModified by Organizat ion Details LastModified Time Do you use any illicit or recreational drugs? No [email or web address] Information not available 02/04/2022 Do you or have you ever used any other forms of tobacco or nicotine? No Information not available 02/04/2022 What is your level of alcohol consumption? Occasional [email or web address] Information not available 02/04/2022 Are you able to walk? YESWOREST [email or web address] Information not available 02/04/2022 Are you able to care for yourself independently? Yes [email or web address] Information not available 02/04/2022 Do you have difficulty dressing, bathing, grooming, or toileting? No [email or web address] Information not available 02/04/2022 What is your exercise level? Occasional [email or web address] Information not available 02/04/2022 Mental Status Question Answer Note LastModified by Organization D etails LastModified Time Do you feel stressed (tense, restless, nervous, or anxious, or unable to sleep at night)? [id number] [email or web address] Information not available 02/04/2022 Family History Relationship Description Onset Age of this Age Resolved Age Notes LastModified by Organization Details LastModified Time Mother Hypertensive disorder [email or web address] Not available 2019 13:32:57 Maternal Grandmother Hypertensive disorder [email or web address] Not available 2019 13:32:57 Maternal Grandmother Hypercholest erolemia [email or web address] Not available 2019 13:33:11 Medical History Condition Response Allergies (Food, seasonal, environmental ) N Other N Breast Cancer N Drug/Latex Allergies/Reactions N Blood Transfusion N Dermatologic Disorders N Lung Disease N Defects or Inherited Disease N Breast Problem N Gestational Diabetes N Hematologic disorders N Anesthesia Complications N History of STI Y Deep Vein Thrombosis N Polycystic ovary syndrome N Anxiety Disorder N Autoimmune disease N Arthritis N Infertility N Polyps N Acid Reflux (GERD) N History of abnormal pap N Cancer N Stroke N Varicosities N Neurologic/Epilepsy N Endometriosis N High Cholesterol N Headaches N Fibromyalgia N Kidney Disease N Heart Problems N Kidney or Bladder Problems N Thyroid Problems N GI Problems N Eating Disorder N Anemia N Art (IVF or FET) N Psychiatric Illness N Ovarian Cancer N Diabetes N Pulmonary (TB, Asthma) N Hepatitis/Liver Disease N No Past Medical History N Eczema N Urinary Tract Infection N Abuse/Domestic Violence N Asthma N Trauma/Violence N Depression/ depression N Heart Disease N Pre-Eclampsia N Hypertension Y Osteoporosis N Thrombophilias N Gynecological History Statement/Question Response Date of Last Mammogram Date of LMP 04/03/2023 STIs/STDs Y Date of DEXA bone scan Date of Last Pap Smear 04/16/2023 Current Control Method None LMP Approximate Obstetrics History GPAL:G 2 P 2 0 0 2 Type Value Full Term 2 Living 2 Total 2 Past Encounters Encounter ID Performer Location Encounter Start Date Encounter Closed Date Diagnosis/Indication Diagnosis SNOMED-CT Code Diagnosis ICD10 Code Diagnosis Note [id number] [facility] [address],[place] [address] 02/04/2022 13:55:20 02/04/2022 15:24:15 Gynecologic examination 11759301 Z01.419 Amenorrhea 27281638 N91. 2 [id number] Jose Quinones MD [facility] [address],[place] [address] 02/04/2022 13:54:52 02/04/2022 14:18:48 [id number] Jose Quinones MD [facility] [address],[place] [address] 03/05/2022 09:59:48 03/05/2022 11:43:32 screening 448238575 Z36.82 [id number] Jose Quinones MD [facility] [address],[place] [address] 03/05/2022 10:00:59 03/05/2022 11:43:08 Routine care 065798862 Z34.81 [id number] Heidi Douglas [facility] [address],[place] [address] 04/02/2022 10:45:56 04/02/2022 12:26:23 Routine care 658728182 Z34.92 [id number] MD Brian Zendejas [address] [place] [address] 04/02/2022 13:19:53 04/02/2022 14:57:03 [id number] MD Brian Zendejas [address] [place] [address] 04/29/2022 16:26:46 04/29/2022 17:47:08 screening 393857360 Z36.[id number] [facility] [address],[place] [address] 04/29/2022 16:27:25 04/29/2022 18:31:47 Routine care 413479085 Z34.92 - induced hypertension 28008390 O13.9 check labs hx of GHTN Increased frequency of urination 756789320 R35.0 [id number] Jose Quinones MD [facility] [address],[place] [address] 05/29/2022 10:59:27 05/29/2022 12:10:50 screening 366425782 Z36.2 O35.8XX0 Z3A.24 [id number] Heidi Douglas [facility] [address],[place] [address] 05/29/2022 11:02:50 05/29/2022 12:29:48 Low back pain 668726868 M54.59 Routine an tenatal care 653073642 Z34.92 [id number] Debra Miranda MD [facility] [address],[place] [address] 06/26/2022 10:10:36 06/26/2022 10:33:42 Past history of gestational hypertension 219457906 Z87.59 Routine an tenatal care 173042272 Z34.83 [id number] Debra Miranda MD [facility] [address],[place] [address] 07/07/2022 14:13:35 07/07/2022 14:50:03 Routine care 568328949 Z34.[id number] [facility] [address],[place] [address] 07/24/2022 12:41:31 07/24/2022 14:23:17 Routine care 396854478 Z34.92 [id number] Jose Quinones MD [facility] [address] [place] [address] 08/07/2022 14:53:41 08/07/2022 15:40:57 Maternal obesity complicating , childbirth and the puerperium, antepartum 7645371408 07 O99.213 O16.9 Z3A.[id number] [facility] [address],[place] [address] 08/07/2022 14:54:07 08/07/2022 15:59:07 Routine care 033460831 Z34.92 [id number] Jose Quinones MD [facility] [address],[place] [address] 08/26/2022 11:27:52 08/26/2022 12:16:59 Maternal obesity complicating , childbirth and the puerperium, antepartum 1556097096 07 O99.213 O16.9 Z3A.34 [id number] Jose Quinones MD [facility] [address],[place] [address] 08/26/2022 11:28:49 08/26/2022 13:46:22 Maternal obesity complicating , childbirth and the puerperium, antepartum 8753698429 07 O99.213 O16.9 Z3A.36 [id number] Heidi Douglas [facility] [address],[place] [address] 08/26/2022 11:29:12 08/26/2022 14:08:03 Routine care 060354464 Z34.92 [facility] [id number] G43.[id number] [facility] [address],[place] [address] 08/31/2022 10:23:36 09/01/2022 12:10:28 [id number] Jose Quinones MD [facility] [address],[place] [address] 09/04/2022 09:58:20 09/04/2022 11:01:54 Maternal obesity complicating , childbirth and the puerperium, antepartum 1635588170 07 O99.213 O16.9 Z3A.36 [id number] Jose Quinones MD [facility] [address],[place] [address] 09/04/2022 09:58:51 09/04/2022 11:48:19 Chronic hypertension complicating AND/OR reason for care during 43499210 O16.9 O99.213 Z3A.38 [id number] Heidi Douglas [facility] [address],[place] [address] 09/04/2022 09:59:05 09/04/2022 11:48:55 Routine care 017154818 Z34.92 [id number] Heidi Douglas [place] [address],[place] [address] 10/09/2022 14:56:06 10/09/2022 16:08:44 care 545103256 Z39.2 Elevated blood-pressure reading without diagnosis of hypertension 597489092 R03.0 check bp at home will have rn check in at 2 weeks, if still elevated see pcp [id number] DORITA Pratt [facility] [address],[place] [address] 10/30/2022 09:37:26 10/30/2022 15:38:53 depression 00111472 F53.0 Obesity 286934177 E66.9 Today we took a detailed health history. We talked about her diet, exercise, past medical hx, and family hx. She is experienci ng symptoms of depression /anxiety, we discussed this in-depth. We agreed to start zoloft, R/B discussed and accepted by patient. ED precaution s discussed. We reviewed the weight management program in-depthDi scussed next steps-Exer cise recommenda tions discussed / 150 minutes of moderate to intense exercise per week, with at least 2 strength training sessions per week-Discu ssed healthy eating, transcriber appointmen t scheduled. Encourage to log in [employer] pal-Compre hensive fasting labs ordered-We discussed weight management medication . She will check her insurance for obestiy medication coverage. We will review labs and discuss medication options at next visit BP elevated today. No symptoms. She has been keeping a log at home and BP has been WNL. She will continue to keep log at home, encouraged her to f/u with PCP for BP check/yuly elizabeth as well. ED precaution s discussed. F/u in 2 weeks Time spent in visit is a total of 50 mins with at least 50% of visit consisting of counseling and review of plan of care. [id number] DORITA Pratt [facility] [address],[facility] [place] [address] 11/12/2022 16:39:43 11/12/2022 17:44:39 Obesity 079015675 E66.9 Today we reviewed recent comprehens bhavesh labsVitami n D low, started weekly rxSlightly elevated AST and ALT. Discussed this in-depth. She does not drink alcohol, no drug use, recent (-) hepatitis testing. We agreed to liver u/s, repeat CMP, and f/u with PCP for further evaluation .We discussed weight management medication s in-depthSh e does not have insurance coverage for wegovy/sax enda/or contraveWe discussed phentermin e/topirama teDiscusse d R/B/A/SE/M OA. Risk of phentermin e reviewed and accepted by patientWe agreed to EKGIf EKG normal, can consider phentermin eShe has been keep a BP log at home - BP has been WNLEKG order given, will await result and notify patient when availableC ontinue exercise and healthy diet changes Time spent in visit is a total of 40 mins with at least 50% of visit consisting of counseling and review of plan of care. Liver enzy mes level above reference range [id number] R74.01 [id number] DORITA Pratt [place] [address] [address] 11/27/2022 09:28:06 11/27/2022 12:00:47 Obesity 801210148 E66.9 26 year old presents for weight management follow-up. She has checked her insurance and has found out she has insurance coverage for wegovy. She has a liver u/s scheduled for elevated liver enzymes.Sh e is using condoms for BC. She is not breastfeed ingWe discussed R/B/SE/A of Wegovy. She denies any personal hx of pancreatit is, denies any personal or family hx of thyroid cancer.Ris k and side effects reviewed, patient verbalized understand ing and desires to start wegovySamp les of 0.25mg per week given to patient, first injection administer ed today by KENROY. Education provided on administra tion.0.25m g SQ per week x 4 weeks, rx sent for 0.5mg SQ per week sent to pharmacy once she has completed 4 weeks of the 0.25mg.Pat ient to notify the office with any questions, concerns, or side effectsCon tinue meeting with dieticianC joan Moses C in 4 weeks Wegovy Samples : LOT [id number], Expires 08/03/2023 , [facility] [id number] Time spent in visit is a total of 35 mins with at least 50% of visit consisting of counseling and review of plan of care. [id number] DORITA Pratt [place] [address],[place] [address] 12/25/2022 09:21:23 12/25/2022 10:29:57 Vitamin D deficiency 14386552 E55.9 Obesity 644158800 E66.9 Doing well since starting wegovyShe has no negative side effectsFee ling like she is eating smaller portion sizesexerc ising 4 times per week, mix of cardio and strengthma david healthy diet choices, using myfitness palShe is going to pick up attendant wegovy 0.5 at her pharmacySh e will f/u in 4 weeks Time spent in visit is a total of 20 mins with at least 50% of visit consisting of counseling and review of plan of care. [id number] DORITA Pratt [place] [address],[place] [address] 01/21/2023 09:29:23 01/21/2023 10:57:29 Obesity 633213127 E66.9 Has lost about 15lbs over the last 3 months. She has been exercising and making healthy food choices. Wegovy was very expensive for her, we will try and see if she is able to obtain mounjaro at a more affordable carbajal. R/B/A/SE discussed. She is aware mounjaro is not FDA approved for obesity medicine. She declines any personal or family hx of thyroid cancer. We did discuss alternativ es obesity medication s.She will f/u in 4 weeks Time spent in visit is a total of 20 mins with at least 50% of visit consisting of counseling and review of plan of care. [id number] Mili Anderson [facility] [address],[place] [address] 02/19/2023 09:27:05 02/19/2023 11:03:54 Obesity 864634842 E66.9 Doing well, has lost 7lbs this monthno negative SEmaking positive diet and movement changeswe agreed to continue on mounjarorx sent, R/B/A discussedR TC in 4 weeks for f/u Time spent in visit is a total of 20 mins with at least 50% of visit consisting of counseling and review of plan of care. [id number] Mili Anderson [place] [address],[place] [address] 03/19/2023 09:31:13 03/22/2023 15:38:43 Obesity 766341744 E66.9 Doing well, continues to loose weightno negative SEmaking positive diet and movement changeswe agreed to continue on mounjarorx sent, R/B/A discussedR TC in 4 weeks for f/u Time spent in visit is a total of 20 mins with at least 50% of visit consisting of counseling and review of plan of care. [id number] Heidi Douglas CNM [place] [address],[place] [address] 04/16/2023 12:26:41 04/16/2023 12:46:06 Gynecologic examination [id number] Z01.419 Z11.3 Z11.8 [id number] Mili Anderson [facility] [address],[place] [address] 04/22/2023 09:56:17 04/22/2023 10:37:32 Obesity 085888645 E66.9 she is going to continue at current dose of mounjarosh e continues to make healthy lifestyle choicesshe is getting in OctRTC in 4-6 weeks Time spent in visit is a total of 20 mins with at least 50% of visit consisting of counseling and review of plan of care. [id number] DORITA Pratt [place] [address],[place] [address] 05/21/2023 09:26:08 05/21/2023 10:37:20 Obesity 189244047 E66.9 she is going to continue at current dose of mounjaro she continues to make healthy lifestyle choices she is exercising regularly she is having no negative SErefills sent x 3 monthsRTC in 3 months or sooner if needed Time spent in visit is a total of 18 mins with at least 50% of visit consisting of counseling and review of plan of care. Health Concerns Section Related Observation LastModified by Organization Detai ls LastModified Time None Recorded Concern Status LastModified by Organization Details LastModified Time None Recorded Advance Directives Directive None Recorded Payers Insurance Date Sequence Insurance Name Policy Number Policy Floyd Covered Member ID Floyd Member ID Guarantor Name 02/02/2022 1 [place] [id number] Alisha Obrien [id number] Jessica Greenwood 04/24/2025 1 [facility] [id number] Monserrat Siddiqui [id number] Jessica Greenwood 04/24/2025 1 [place] [id number] Jessica Greenwood [id number] Jessica Greenwood Notes Date Note Type Note Provider Name and Address Organization Details Recorded Time 3 text/html 27yopresents for weight management f/ushe started on mounjaro at LOVdoing well, has lost 7lbs this monthhas been incorporating more exercise, making significant diet changesno negative SE DORITA Pratt [address], [place], [address], [place] - [facility] 02/19/2023 10:47:04 3 text/html 27yopresents for obesity medication f/udoing well, continues to loose weightshe is exercising, making healthy diet choices DORITA Pratt [address], [place], [address], [facility] 03/22/2023 08:59:42 3 text/html Annual GYNReported by PatientHistoryFor history, patient reportsno gynecologic complaints,no change in interval history, andplanning in the near future.Genitourinary symptomsFor menstrual cycle, patient reportsnormal menses. For urinary symptoms, patient reportsno hematuriaandno incontinence. For vulva, patient reportsno genital lesion. For vagina, patient reportsnormal vaginal discharge.Breast symptomsFor breast, patient reportsno breast pain,no breast lump, andno nipple discharge.Contraceptio nFor current contraception, patient reportssatisfied with current contraceptionandcondom s.Endocrine symptomsFor sexual complaints, patient reportsno sexual complaints,no pain during intercourse, andnormal libido. For menopausal symptoms, patient reportsno menopausal symptomsandnormal vaginal lubrication.Psychologi nacho symptomsFor psychological symptoms, patient reportsno depression,no anxiety, andno pmdd.Preventative measuresFor preventive measures, patient reportsencourage self breast examination,encourage regular exercise, andencourage no tobacco use.getting in july doing wellROS as noted in the HPI Heidi Douglas CNM [address], [place], [address], [facility] 04/16/2023 12:45:40 3 text/html 27yopresents for weight management f/ushe continues to have successexercising, eating healthy, has lost 10 pounds since last visitfeeling well on mounjaro 7.5 she unexpectedly lost her mother in law a few weeks ago. She was very close to her. DORITA Pratt [address], [place], [address], [facility] 04/22/2023 10:27:13 3 text/html 27yopresents for weight management follow-upshe has been doing well on mounjaroshe is exercising regularly - strength and cardiomeal prepping, making healthy choicesnormal bowel movementsno negative SE Mili Anderson, [facility] [address], [place], [address], [place] [facility] 05/21/2023 10:21:12 OBGyn Episode Ob Episode Information Episode Created Date Number of Fetuses Patient Bloodtype Patient rh Status Prepregnancy Weight lbs Domestic Partner Domestic Partner Phone Father Name Clinical Account Manager Status 04/09/20 20 1 CLOSED Fetus Data First Name Last Name Admitted to NICU Weight (g) Sex Living Outcome Pediatric Complications Fetus ID Race Codes Race Delivery Type 2721.55 2 F Full Term [id number] Vaginal Delivery Omkar Calculation Initial Omkar Date Initial Exam Date Initial Exam Provider Initial Ultrasound Date Last Menstrual Period Date Ultra Sound Weeks Gestation 0 Eighteen To Twenty Week Omkar Update Ultra Sound Date Fundal Height At Umbil Quickening Date Ultra Sound Latest Weeks Gestation Final Omkar Confirmed By Final Omkar Confirmed Date Final Omkar Date Ultra Sound Latest Days Gestation 0 0 Menstrual History Last Menstrual Date Menses Monthly On Bcp Conception Prior Menses Frequency Hcg Plus Date Menarche Onset Age Delivery Information Delivery Date Delivery Type Labor Anesthesia Weeks Gestation Incision Type Labor Labor Length Hrs Delivered By Post Complications Tubal Sterilization Discharge Date Comments 9 37 GHTN Discharge Information Feeding Method Contraceptive Method Maternal HG B and HCT Levels Ob Episode Information Episode Created Date Number of Fetuses Patient Bloodtype Patient rh Status Prepregnancy Weight lbs Domestic Partner Domestic Partner Phone Father Name Clinical Account Manager Status 03/05/20 22 1 A Positive 214 CLOSED Fetus Data First Name Last Name Admitted to NICU Weight (g) Sex Living Outcome Pediatric Complications Fetus ID Race Codes Race Delivery Type Leah 3203.49 37 F true Full Term gastric aspirate 6 ccs [id number] Vaginal Delivery Problems Problem Notes CF Negative 2018NIPT NL XX*C onfirmed by SP, HSV oral only. MK, RN Problem Name Start Date End Date Resolution Snomed Code Not e -induced hypertension MEDICATION [id number] hx of baby asa Headache 19001053 Constipation 03/09/2022 MEDICATION 62972816 colac e Nausea 03/09/2022 DELIVERY 126261503 zofran 8m g Maternal obesity complicating , childbirth and the puerperium, antepartum [id number] BMI > 35 prepreg- need to discuss ante testing next visit. Omkar Calculation Initial Omkar Date Initial Exam Date Initial Exam Provider Initial Ultrasound Date Last Menstrual Period Date Ultra Sound Weeks Gestation 09/18/2022 03/05/2022 02/04/2022 12/11/2021 7 Eighteen To Twenty Week Omkar Update Ultra Sound Date Fundal Height At Umbil Quickening Date Ultra Sound Latest Weeks Gestation Final Omkar Confirmed By Final Omkar Confirmed Date Final Omkar Date Ultra Sound Latest Days Gestation 0 [email or web address] 03/05/2022 09/17/20 22 0 Pre-jhonatan Flowsheet Flowsheet Date 03/05/2022 Gray Score Blood Edema Fundus Height Fundus Units Glucose Ketones Leukocytes Nitrite Labor Signs Protein Cervic Dilation Cervic Effacement Cervic Station 12 Type Weight in lbs Pre/Post Dialysis Refused Weight 215.793035793191 BP Diastolic BP Location Tested BP Systolic BP Type 81 R arm 118 sitting Fetus Heart Rate Present A 155 Fetus Movement Comments This patient is a 26-year-ol d 2 para 1001 at 12 weeks gestation. She is on vaccinated for COVID. I gave her that recommendation. Also recommended flu vaccines and Tdap. We talked about care in detail. She has some nausea that is associated with reflux. She was given medications for reflux and nausea. she has history of gestational hypertension. She is starting a baby aspirin. She will begin routine care. Flowsheet Date 04/02/2022 Gray Score Blood Edema Fundus Height Fundus Units Glucose Ketones Leukocytes Nitrite Labor Signs Protein Cervic Dilation Cervic Effacement Cervic Station neg none none trace Type Weight in lbs Pre/Post Dialysis Refused Weight 214.513135616788 BP Diastolic BP Location Tested BP Systolic BP Type 88 125 Fetus Heart Rate Present A 149 Fetus Movement A Yes Comments patient states that having s ome fatigue, nausea and vomiting. declines medication starting to feel better, gender us today. plan anatomy and baseline pih labs at next visit f/u 4 weeks Flowsheet Date 04/02/2022 Gray Score Blood Edema Fundus Height Fundus Units Glucose Ketones Leukocytes Nitrite Labor Signs Protein Cervic Dilation Cervic Effacement Cervic Station Type Weight in lbs Pre/Post Dialysis Refused BP Diastolic BP Location Tested BP Systolic BP Type Fetus Heart Rate Present Fetus Movement Comments Flowsheet Date 04/29/2022 Gray Score Blood Edema Fundus Height Fundus Units Glucose Ketones Leukocytes Nitrite Labor Signs Protein Cervic Dilation Cervic Effacement Cervic Station Type Weight in lbs Pre/Post Dialysis Refused BP Diastolic BP Location Tested BP Systolic BP Type Fetus Heart Rate Present Fetus Movement Comments Flowsheet Date 04/29/2022 Gray Score Blood Edema Fundus Height Fundus Units Glucose Ketones Leukocytes Nitrite Labor Signs Protein Cervic Dilation Cervic Effacement Cervic Station neg none none trace Type Weight in lbs Pre/Post Dialysis Refused Weight 216.408654705202 BP Diastolic BP Location Tested BP Systolic BP Type 82 122 Fetus Heart Rate Present Fetus Movement A Yes Comments patient is having pain, back pain, round ligament pain, BH contractions, discharge, pain with urination, nausea and vomiting. ed precautions reviewed pt would like to try outpt tx first, macrobid and flexeril, anatomy incomplete LVEIF, synchae? f/u 4 weeks or sooner if needed Flowsheet Date 05/29/2022 Gray Score Blood Edema Fundus Height Fundus Units Glucose Ketones Leukocytes Nitrite Labor Signs Protein Cervic Dilation Cervic Effacement Cervic Station Type Weight in lbs Pre/Post Dialysis Refused BP Diastolic BP Location Tested BP Systolic BP Type Fetus Heart Rate Present Fetus Movement Comments Flowsheet Date 05/29/2022 Gray Score Blood Edema Fundus Height Fundus Units Glucose Ketones Leukocytes Nitrite Labor Signs Protein Cervic Dilation Cervic Effacement Cervic Station neg none none trace Type Weight in lbs Pre/Post Dialysis Refused Weight 226.209867025382 BP Diastolic BP Location Tested BP Systolic BP Type 88 131 Fetus Heart Rate Present Fetus Movement A Yes Comments patient is having some pain and back pain. LLP resolved, anatomy complete, LVEIF stable , back pain flexeril and plan PT also ok for chiropractor, precautions reviewed f/u 4 weeks with gct Flowsheet Date 06/26/2022 Gray Score Blood Edema Fundus Height Fundus Units Glucose Ketones Leukocytes Nitrite Labor Signs Protein Cervic Dilation Cervic Effacement Cervic Station neg none 31 none trace Type Weight in lbs Pre/Post Dialysis Refused Weight 234.859348249958 BP Diastolic BP Location Tested BP Systolic BP Type 83 122 Fetus Heart Rate Present A 145 Fetus Movement A Yes Comments Doing well. Flexeril helping back pain, encouraged to only use sparingly. Has not been taking ASA at all, discussed the R and B, encouraged to start. GCT today. Discussed and encouraged Tdap, will do. Upon chart review, noticed her prepreg BMI was >35, needs ante testing at 37w, please discuss with pt next visit. Flowsheet Date 07/07/2022 Gray Score Blood Edema Fundus Height Fundus Units Glucose Ketones Leukocytes Nitrite Labor Signs Protein Cervic Dilation Cervic Effacement Cervic Station neg trace 34 2+ trace Type Weight in lbs Pre/Post Dialysis Refused Weight 236.441326787837 BP Diastolic BP Location Tested BP Systolic BP Type 78 116 Fetus Heart Rate Present A 160 Fetus Movement A Yes Comments Doing well. Taking ASA. GCT wnl. Will do Tdap. Discussed testing at 37w for BMI. Will add US in next couple of visits for S>D. Flowsheet Date 07/24/2022 Gray Score Blood Edema Fundus Height Fundus Units Glucose Ketones Leukocytes Nitrite Labor Signs Protein Cervic Dilation Cervic Effacement Cervic Station neg trace 34 1+ trace Type Weight in lbs Pre/Post Dialysis Refused Weight 241.64173332886 BP Diastolic BP Location Tested BP Systolic BP Type 77 137 Fetus Heart Rate Present A 147 Fetus Movement A Yes Comments Patient c/o watery discharge and slight swelling, to ld for rom +precautions reviewed, testing scheduled, setup preadmit f/u 2 weeks Flowsheet Date 08/07/2022 Gray Score Blood Edema Fundus Height Fundus Units Glucose Ketones Leukocytes Nitrite Labor Signs Protein Cervic Dilation Cervic Effacement Cervic Station Type Weight in lbs Pre/Post Dialysis Refused BP Diastolic BP Location Tested BP Systolic BP Type Fetus Heart Rate Present Fetus Movement Comments Flowsheet Date 08/07/2022 Gray Score Blood Edema Fundus Height Fundus Units Glucose Ketones Leukocytes Nitrite Labor Signs Protein Cervic Dilation Cervic Effacement Cervic Station neg trace none trace Type Weight in lbs Pre/Post Dialysis Refused Weight 243.870366320013 BP Diastolic BP Location Tested BP Systolic BP Type 89 134 Fetus Heart Rate Present Fetus Movement A Yes Comments patient is having some BH co ntractions, swelling, and nausea. EFW 44%, EIF stable, JOANA wnl, precautions reviewed f/u as scheduled gbs at 36 Flowsheet Date 08/26/2022 Gray Score Blood Edema Fundus Height Fundus Units Glucose Ketones Leukocytes Nitrite Labor Signs Protein Cervic Dilation Cervic Effacement Cervic Station Type Weight in lbs Pre/Post Dialysis Refused BP Diastolic BP Location Tested BP Systolic BP Type Fetus Heart Rate Present Fetus Movement Comments Flowsheet Date 08/26/2022 Gray Score Blood Edema Fundus Height Fundus Units Glucose Ketones Leukocytes Nitrite Labor Signs Protein Cervic Dilation Cervic Effacement Cervic Station Type Weight in lbs Pre/Post Dialysis Refused BP Diastolic BP Location Tested BP Systolic BP Type Fetus Heart Rate Present Fetus Movement Comments Flowsheet Date 08/26/2022 Gray Score Blood Edema Fundus Height Fundus Units Glucose Ketones Leukocytes Nitrite Labor Signs Protein Cervic Dilation Cervic Effacement Cervic Station neg trace none trace Type Weight in lbs Pre/Post Dialysis Refused Weight 250.696308837299 BP Diastolic BP Location Tested BP Systolic BP Type 88 152 Fetus Heart Rate Present Fetus Movement A Yes Comments patient is having some heada ches, BH contractions, pressure and swelling. to ld for bp monitoring and labs, hx GHTN not taking asa as rec, precautions reviewed, ramos behind eyes started 2 days ago no visual changes or epigastric pain, f/u pending labs precautions reviewed Flowsheet Date 08/31/2022 Gray Score Blood Edema Fundus Height Fundus Units Glucose Ketones Leukocytes Nitrite Labor Signs Protein Cervic Dilation Cervic Effacement Cervic Station Type Weight in lbs Pre/Post Dialysis Refused BP Diastolic BP Location Tested BP Systolic BP Type 87 125 Fetus Heart Rate Present Fetus Movement Comments Flowsheet Date 09/04/2022 Gray Score Blood Edema Fundus Height Fundus Units Glucose Ketones Leukocytes Nitrite Labor Signs Protein Cervic Dilation Cervic Effacement Cervic Station Type Weight in lbs Pre/Post Dialysis Refused BP Diastolic BP Location Tested BP Systolic BP Type Fetus Heart Rate Present Fetus Movement Comments Flowsheet Date 09/04/2022 Gray Score Blood Edema Fundus Height Fundus Units Glucose Ketones Leukocytes Nitrite Labor Signs Protein Cervic Dilation Cervic Effacement Cervic Station Type Weight in lbs Pre/Post Dialysis Refused BP Diastolic BP Location Tested BP Systolic BP Type Fetus Heart Rate Present Fetus Movement Comments Flowsheet Date 09/04/2022 Gray Score Blood Edema Fundus Height Fundus Units Glucose Ketones Leukocytes Nitrite Labor Signs Protein Cervic Dilation Cervic Effacement Cervic Station neg trace none trace Type Weight in lbs Pre/Post Dialysis Refused Weight 252.160760465060 BP Diastolic BP Location Tested BP Systolic BP Type 88 136 Fetus Heart Rate Present Fetus Movement A Yes Comments patient states that having s welling, pain, contractions, discharge, and nausea. discussed precautions, turning in 24 hour urine tomorrow, IOL next week, efw 38%, Flowsheet Date 10/09/2022 Gray Score Blood Edema Fundus Height Fundus Units Glucose Ketones Leukocytes Nitrite Labor Signs Protein Cervic Dilation Cervic Effacement Cervic Station Type Weight in lbs Pre/Post Dialysis Refused Weight 242.590133281068 BP Diastolic BP Location Tested BP Systolic BP Type 94 158 90 150 Fetus Heart Rate Present Fetus Movement Comments Flowsheet Date 10/30/2022 Gray Score Blood Edema Fundus Height Fundus Units Glucose Ketones Leukocytes Nitrite Labor Signs Protein Cervic Dilation Cervic Effacement Cervic Station Type Weight in lbs Pre/Post Dialysis Refused Weight 242.202316495815 BP Diastolic BP Location Tested BP Systolic BP Type 103 148 98 142 Fetus Heart Rate Present Fetus Movement Comments Menstrual History Last Menstrual Date Menses Monthly On Bcp Conception Prior Menses Frequency Hcg Plus Date Menarche Onset Age 0312/11/2021 Genetic Screening And Infection History Question Response Note Mental Retardation/Autism false Patient's Age Will Be 35 Years Or Older At Estim ated Date of Delivery false Thalassemia (Serbian, Kyrgyz, Mediterranean, Or Background): MCV < 80 false Neural Tube Defect (Meningomyelocele, Spina Bifi da, Or Anencephaly) false Congenital Heart Defect false Down Syndrome false Ramon-Sachs (eg, Denominational, Cajun, Salvadorean-North Korean) f alse Rosemarie Disease false Sickle Cell Disease Or Trait () false Hemophilia Or Other Blood Disorders false Muscular Dystrophy false Cystic Fibrosis false Marcos's Ch[place] false Intellectual Disability/Autism false If Yes, Was Person Tested For Fragile X? false Other Inherited Genetic Or Chromosomal Disorder false Maternal Metabolic Disorder (eg, Type 1 Diabetes , PKU) false Patient Or Baby's Father Had A Child With Defects Not Listed Above false Recurrent Loss, Or A Stillbirth false Medications (including Suppl ements, Vitamins, Herbs, OTC Drugs), Illicit/Recreational Drugs, Alcohol false If Yes, Agent(s) And Strength/Dosage false Any Other Genetic History false Live With Someone With TB Or Exposed To TB false Patient Or Partner Has History Of Genital Herpes false Rash Or Viral Illness Since Last Menstrual Perio d false History Of STD, Gonorrhea, Chlamydia, HPV, Syphi lis false Other Infection History false History of HIV false History of Hepatitis false Prior GBS-infected child false Hemoglobinopathy Or Carrier false Other Structural Defect false Recent Travel History Outside of Country false Delivery Information Delivery Date Delivery Type Labor Anesthesia Weeks Gestation Incision Type Labor Labor Length Hrs Delivered By Post Complications Tubal Sterilization Discharge Date Comments 2 Induce d Regional-Ep idural 39.1 false Heidi DouglasM Maternal obesity Discharge Information Feeding Method Contraceptive Method Maternal HG B and HCT Levels Breast
[2025-04-28 14:05] LABS: Beta HCG Quantitative 3926.40 mIU/ML
== END 2025-04-28 13:05 | disposition home or self-care (01) ==
LOC: ANHLAB 13:14
PROVIDERS: PCP Internal Medicine; Visit Provider Advanced Practice Midwife
DX: N91.2 Amenorrhea, unspecified (principal)
CPT/HCPCS: 36415; 84702